=== PATIENT | female | born 1995 | race Hispanic/Latino ===

== ENCOUNTER 2025-06-27 11:58 | Emergency (ER) | payer SELFPAY ==
--- OUTSIDE RECORDS SUMMARY | 2025-06-27 12:13 | XMS REPORT | Continuity of Care Document ---
Author Name Unknown Address [address] [facility] [address] [place] [address] [facility] Address [address] [facility] [address] [place] [address] Care Team Providers Care Fire Truck Driver Name Role Phone HARSH CASTELLANO Primary Care Physician [phone] KORINA CASTELLANO Attending Clinician Unavailable LAW CABRERA Attending Clinician UnavailANTHONY Shanks Attending Clinician Unavailab CONRAD Amaro Attending Clinician Unavailable Jean Pierre Attending Clinician Unavailable JO Attending Clinician Unavailable Best Attending Clinician Unavailable JOHN ACEVEDO Attending Clinician Unavaila JEREMY Edwards Attending Clinician Unavailable WAYNE DELA CRUZ Attending Clinician Unavailable HARSHA FRIEDMAN Attending Clinician Unavailable MARLYN AVILA Attending Clinician Unavailable SUMAN MIRANDA Attending Clinician JANIE Perez Attending Clinician Unavailable LIZZ HUERTA Attending Clinician UnavailLAW Carias Admitting Clinician Unavailcorinne Greenfield Admitting Clinician Unavailable JO Admitting Clinician Unavailable Best Admitting Clinician Unavailable Payers Payer Name Policy Type Policy Number Effective Date Expirati on Date Source FORMERLY [facility] (MEDICAID REPLACEMENT - HMO) [id number] [place]) [id number] [place] [facility]) [id number] Problems Condition Name Condition Details Condition Category Status Onset Date Resolution Date Last Treatment Date Treating Clinician Comments Source Contracept ion status Contracept ion Status Problem Active 02-06 00:00: 00 [facility] High risk High Risk Problem Active 07-27 00:00: 00 [facility] Placenta previa marginalis Placenta Previa Marginalis Problem Active 07-05 00:00: 00 [facility] ultrasound scan abnormal Ultrasound Scan Abnormal Problem Active 06-19 00:00: 00 [facility] Normal labor and delivery Problem 06-19 00:00: 00 [facility] Draining postoperat monisha wound Problem [facility] 37 weeks gestation of Problem [facility] 39 weeks gestation of Problem [facility] 40 weeks gestation of Problem [facility] Allergic reaction, urticaria Problem [facility] Failure to progress in first stage of labor Problem [facility] Petechiae Problem [facility] Incomplete Problem [facility] Influenza Problem [facility] Non-reassu ring heart rate or rhythm affecting management of mother Problem [facility] Prolonged spontaneou s rupture of membranes Problem [facility] Retained products of conception Problem [facility]aginal delivery [facility] Upper respirator y tract infection Problem [facility] Urinary tract infection Problem [facility] Vaginal bleeding Problem [facility] Status post dilation and curettage Problem [facility] Status post primary low transverse section Problem [facility] Social History Social Habit Start Date Stop Date Quantity Comments Source History of tobacco use [facility] Smoking Status Start Date Stop Date Source Never Smoker [facility] Medications Ordered Medication Name Filled Medication Name Start Date Stop Date Current Medication? Ordering Clinician Indication Dosage Frequency Signature (SIG) Comments Components Source Ciprofloxac in (Cipro*) 250 Mg TAB Ciprofloxac in (Cipro*) 250 Mg TAB 2023-11 10:03: 19 08-13 10:02 :00 No 1 [facility] Ferrous Sulfate (Iron 325 Mg *) 325 Mg TAB Ferrous Sulfate (Iron 325 Mg *) 325 Mg TAB 2023-11 19:26: 00 Yes 1 [facility] Multivit-Mi n W/Fe-Fa * ( *) TAB Multivit-Mi n W/Fe-Fa * ( *) TAB 2017-11 14:58: 00 10-19 15:58 :00 No 1 [facility] Ferrous Gluconate (Ferrous Gluconate 240 Mg) 240 Mg TAB Ferrous Gluconate (Ferrous Gluconate 240 Mg) 240 Mg TAB 2017-11 01:44: 00 10-19 15:58 :00 No 240 [facility] Acetaminoph en W/ Codeine #3 * (Tylenol Codeine #3 300MG/30MG *) 1 Tab TAB Acetaminoph en W/ Codeine #3 * (Tylenol Codeine #3 300MG/30MG *) 1 Tab TAB 06-20 06:37: 00 10-06 02:43 :00 No 1 [facility] Ibuprofen (Motrin *) 800 Mg TAB Ibuprofen (Motrin *) 800 Mg TAB 08-07 13:31: 00 06-20 06:38 :00 No 1 [facility] doxycycline hyclate 100 mg tablet TAKE 1 TABLET BY MOUTH TWICE DAILY FOR 7 DAYS doxycycline hyclate 100 mg tablet TAKE 1 TABLET BY MOUTH TWICE DAILY FOR 7 DAYS No doxycyclin e hyclate 100 mg tablet TAKE 1 TABLET BY MOUTH TWICE DAILY FOR 7 DAYS [facility] Zafemy 150 mcg-35 mcg/24 hr transdermal patch APPLY 1 PATCH TOPICALLY TO THE SKIN EVERY WEEK Zafemy 150 mcg-35 mcg/24 hr transdermal patch APPLY 1 PATCH TOPICALLY TO THE SKIN EVERY WEEK No Zafemy 150 mcg-35 mcg/24 hr transderma l patch APPLY 1 PATCH TOPICALLY TO THE SKIN EVERY WEEK [facility] Macrobid 100 mg capsule Take 1 capsule twice a day by oral route for 5 days. Macrobid 100 mg capsule Take 1 capsule twice a day by oral route for 5 days. No 1capsul e(s) BID Macrobid 100 mg capsule Take 1 capsule twice a day by oral route for 5 days. [facility] Vital Signs Vital Name Observation Time Observation Value Comments S ource Height 2025-03-15 00:00:00 60 [in_i] [facility] BMI (Body Mass Index) 2025-03-15 00:00:00 26.4 kg/m2 [facility] Body Weight 2025-03-15 00:00:00 135.4 [lb_av] [facility] BMI (Body Mass Index) 2025-02-12 00:00:00 26.5 kg/m2 [facility] Body Weight 2025-02-12 00:00:00 135.9 [lb_av] M [facility] Height 2025-02-12 00:00:00 60 [in_i] [facility] BP Systolic 2025-02-12 00:00:00 129 mm[Hg] [facility] BP Diastolic 2025-02-12 00:00:00 82 mm[Hg] [facility] BP Systolic 2024-12-28 00:00:00 109 mm[Hg] [facility] Body Weight 2024-12-28 00:00:00 136.8 [lb_av] [facility] BMI (Body Mass Index) 2024-12-28 00:00:00 26.7 kg/m2 [facility] BP Diastolic 2024-12-28 00:00:00 78 mm[Hg] [facility] Height 2024-12-28 00:00:00 60 [in_i] [facility] BP Diastolic 2024-11-21 00:00:00 63 mm[Hg] [facility] Body Weight 2024-11-21 00:00:00 2213 [oz_av] [facility] BP Systolic 2024-11-21 00:00:00 98 mm[Hg] [facility] Height 2024-11-21 00:00:00 60 [in_i] [facility] BMI (Body Mass Index) 2024-11-21 00:00:00 27 kg/m2 [facility] BP Diastolic 2024-10-20 00:00:00 78 mm[Hg] [facility] Height 2024-10-20 00:00:00 60 [in_i] [facility] Body Weight 2024-10-20 00:00:00 134 [lb_av] [facility] BP Systolic 2024-10-20 00:00:00 113 mm[Hg] [facility] BMI (Body Mass Index) 2024-10-20 00:00:00 26.2 kg/m2 [facility] Height 2024-09-08 00:00:00 60 [in_i] [facility] BMI (Body Mass Index) 2024-09-08 00:00:00 25.4 kg/m2 [facility] Body Weight 2024-09-08 00:00:00 130 [lb_av] [facility] BP Systolic 2024-09-08 00:00:00 109 mm[Hg] [facility] BP Diastolic 2024-09-08 00:00:00 76 mm[Hg] [facility] BMI (Body Mass Index) 2024-08-28 00:00:00 25.5 kg/m2 [facility] Body Weight 2024-08-28 00:00:00 130.4 [lb_av] [facility] BP Systolic 2024-08-28 00:00:00 107 mm[Hg] [facility] Height 2024-08-28 00:00:00 60 [in_i] [facility] BP Diastolic 2024-08-28 00:00:00 70 mm[Hg] [facility] BP Diastolic 2024-08-24 00:00:00 67 mm[Hg] [facility] Body Weight 2024-08-24 00:00:00 132 [lb_av] [facility] BMI (Body Mass Index) 2024-08-24 00:00:00 25.8 kg/m2 [facility] Height 2024-08-24 00:00:00 60 [in_i] [facility] BP Systolic 2024-08-24 00:00:00 98 mm[Hg] [facility] BMI (Body Mass Index) 2024-08-21 00:00:00 27.2 kg/m2 [facility] BP Diastolic 2024-08-21 00:00:00 74 mm[Hg] [facility] BP Systolic 2024-08-21 00:00:00 133 mm[Hg] [facility] Height 2024-08-21 00:00:00 60 [in_i] [facility] Body Weight 2024-08-21 00:00:00 139.1 [lb_av] [facility] Height 2024-08-20 12:54:00 149.759366 cm [facility] Weight 2024-08-20 12:54:00 58.286301 kg [facility] BMI (Body Mass Index) 2024-08-20 12:54:00 26.3 kg/m2 [facility] Height 2024-08-11 19:23:00 152.4 cm [facility] Weight 2024-08-11 19:23:00 66.566669 kg [facility] BMI (Body Mass Index) 2024-08-11 19:23:00 28.7 kg/m2 [facility] BP Diastolic 2024-08-09 00:00:00 70 mm[Hg] [facility] Height 2024-08-09 00:00:00 60 [in_i] [facility] Body Weight 2024-08-09 00:00:00 147 [lb_av] [facility] BMI (Body Mass Index) 2024-08-09 00:00:00 28.7 kg/m2 [facility] BP Systolic 2024-08-09 00:00:00 107 mm[Hg] [facility] BP Systolic 2024-08-04 00:00:00 107 mm[Hg] [facility] BMI (Body Mass Index) 2024-08-04 00:00:00 29 kg/m2 [facility] Body Weight 2024-08-04 00:00:00 148.6 [lb_av] [facility] BP Diastolic 2024-08-04 00:00:00 70 mm[Hg] [facility] Height 2024-08-04 00:00:00 60 [in_i] [facility] BMI (Body Mass Index) 2024-07-28 00:00:00 28.6 kg/m2 [facility] BP Systolic 2024-07-28 00:00:00 103 mm[Hg] [facility] Height 2024-07-28 00:00:00 60 [in_i] [facility] BP Diastolic 2024-07-28 00:00:00 64 mm[Hg] [facility] Body Weight 2024-07-28 00:00:00 146.6 [lb_av] [facility] BP Systolic 2024-07-21 00:00:00 115 mm[Hg] [facility] BP Diastolic 2024-07-21 00:00:00 72 mm[Hg] [facility] Height 2024-07-21 00:00:00 60 [in_i] [facility] Body Weight 2024-07-21 00:00:00 145 [lb_av] [facility] BMI (Body Mass Index) 2024-07-21 00:00:00 28.3 kg/m2 [facility] BP Systolic 2024-07-14 00:00:00 107 mm[Hg] [facility] Body Weight 2024-07-14 00:00:00 143 [lb_av] [facility] BP Diastolic 2024-07-14 00:00:00 68 mm[Hg] [facility] Height 2024-07-14 00:00:00 60 [in_i] [facility] BMI (Body Mass Index) 2024-07-14 00:00:00 27.9 kg/m2 [facility] BP Diastolic 2024-06-30 00:00:00 65 mm[Hg] [facility] BP Systolic 2024-06-30 00:00:00 99 mm[Hg] [facility] BMI (Body Mass Index) 2024-06-30 00:00:00 27.9 kg/m2 [facility] Height 2024-06-30 00:00:00 60 [in_i] [facility] Body Weight 2024-06-30 00:00:00 143 [lb_av] [facility] Height 2024-05-25 00:00:00 60 [in_i] [facility] BP Diastolic 2024-05-25 00:00:00 65 mm[Hg] [facility] Body Weight 2024-05-25 00:00:00 140.7 [lb_av] [facility] BMI (Body Mass Index) 2024-05-25 00:00:00 27.5 kg/m2 [facility] BP Systolic 2024-05-25 00:00:00 96 mm[Hg] [facility] Height 2024-03-21 00:00:00 58 [in_i] [facility] BP Diastolic 2024-03-21 00:00:00 71 mm[Hg] [facility] Body Weight 2024-03-21 00:00:00 138.4 [lb_av] [facility] BMI (Body Mass Index) 2024-03-21 00:00:00 28.9 kg/m2 [facility] BP Systolic 2024-03-21 00:00:00 106 mm[Hg] [facility] Height 2023-07-09 00:00:00 60 [in_i] [facility] Body Weight 2023-07-09 00:00:00 2192 [oz_av] [facility] BP Diastolic 2023-07-09 00:00:00 78 mm[Hg] [facility] BMI (Body Mass Index) 2023-07-09 00:00:00 26.8 kg/m2 [facility] BP Systolic 2023-07-09 00:00:00 111 mm[Hg] [facility] BMI (Body Mass Index) 2023-06-24 00:00:00 26.8 kg/m2 [facility] Height 2023-06-24 00:00:00 60 [in_i] [facility] BP Systolic 2023-06-24 00:00:00 98 mm[Hg] [facility] Body Weight 2023-06-24 00:00:00 2192 [oz_av] [facility] BP Diastolic 2023-06-24 00:00:00 67 mm[Hg] [facility] Procedures Procedure Date / Time Performed Performing Clinician Source US, obstetric, limited 2024-07-14 00:00:00 [facility] ULTRASOUND, UTERUS REAL TIME WITH IMAGE DOC, AND MATERNAL EVAL PLUS DETAILED ANATOMIC EXAMINATION, TRANSABDOMINAL APPROACH; SINGLE OR FIRST GESTATION 2024-05-25 00:00:00 [facility] XR, thoracic spine 2022-02-18 00:00:00 [facility] XR, lumbar spine 2022-02-18 00:00:00 [facility] Dilation and Curettage 2021-05-26 00:00:00 [facility] non-stress test 2021-05-08 [facility] 2021-04-14 00:00:00 [facility] US, obstetric, limited 2021-03-17 00:00:00 [facility] ULTRASOUND REPEAT 2021-02-17 00:00:00 [facility] ULTRASOUND, UTERUS REAL TIME WITH IMAGE DOC, AND MATERNAL EVAL PLUS DETAILED ANATOMIC EXAMINATION, TRANSABDOMINAL APPROACH; SINGLE OR FIRST GESTATION 2020-11-25 00:00:00 [facility] US, obstetric, limited 2020-11-25 00:00:00 [facility] US, obstetric, limited 2020-11-04 00:00:00 [facility] US, obstetric, limited 2020-10-11 00:00:00 [facility] ULTRASOUND, UTERUS REAL TIME WITH IMAGE DOCUMENTAITON, TRANSVAGINAL 2020-09-27 00:00:00 [facility] US, transvaginal 2020-04-15 00:00:00 [facility] US, obstetric, limited 2018-10-10 00:00:00 [facility] Dilation and Curettage 2014-08-07 00:00:00 [facility] Encounters Start Date/Time End Date/Time Encounter Type Admission Type Attending Clinicians Care Facility Care Department Encounter ID Source 2025-03-15 00:00:00 2025-03-15 00:00:00 Law Cabrera MD: [address] [facility], [address], [place] [address] , Ph. [phone] [facility] [id number] [facility] 2025-02-12 00:00:00 2025-02-12 00:00:00 Law Cbarera MD: [address] [facility], [address], [place] [address] , Ph. [phone] [facility] [id number] 0407 [facility] 2024-12-28 00:00:00 2024-12-28 00:00:00 Law Cabrera MD: [address] [facility], [address], [place] [address] , Ph. [phone] [facility] [id number] 0220 [facility] 2024-11-21 09:25:00 2024-11-21 09:25:00 [facility]patient [facility] [id number] [facility] 2024-11-21 00:00:00 2024-11-21 00:00:00 Korina Castellano PA-C: [address], [address], [place] [address] , Ph. [facility] [id number] 0114 [facility] 2024-10-20 00:00:00 2024-10-20 00:00:00 Law Cabrera MD: [address], [address], [place] [address] , Ph. [phone] [facility] - OBGYN [id number] 1213 [facility] 2024-09-08 00:00:00 2024-09-08 00:00:00 Law Cabrera MD: [address], [address], [place] [id number] , Ph. [phone] [facility] - OBGYN [id number] 1101 [facility] 2024-08-28 00:00:00 2024-08-28 00:00:00 Law Cabrera MD: [address], [address], [place] [address] , Ph. [phone] [facility] [id number] 1021 [facility] 2024-08-25 09:00:00 2024-08-26 13:00:00 Outpatient EL [facility] [id number] [facility] 2024-08-24 14:44:00 2024-08-24 14:44:00 Emergency ER LAW [facility] [id number] [facility] 2024-08-24 00:00:00 2024-08-24 00:00:00 Law Cabrera MD: [address], [address], [place] [address] , Ph. [phone] [facility] [id number] 1017 [facility] 2024-08-21 00:00:00 2024-08-21 00:00:00 Law Cabrera MD: [address], [address], [place] [address] , Ph. [phone] [facility] OBGY [id number] 1014 [facility] 2024-08-20 12:43:00 2024-08-20 14:10:00 Departed Emergency Room [facility] [id number] 33 [facility] 2024-08-20 12:43:00 2024-08-20 14:10:00 Emergency ER ANTHONY [facility] [id number] [facility] 2024-08-11 10:45:00 2024-08-13 10:30:00 Inpatient ER LAW [facility] [id number] [facility] 2024-08-11 10:45:00 2024-08-13 10:30:00 Discharged Inpatient [facility] [id number] 76 [facility] 2024-08-09 09:40:00 2024-08-09 09:40:00 Registered Clinic [facility] [id number] 33 [facility] 2024-08-09 09:40:00 2024-08-09 09:40:00 Outpatient CONRAD [facility] [id number] [facility] 2024-08-09 00:00:00 2024-08-09 00:00:00 SALLY Cline: [address], [address], [place] [address] , Ph. [phone] [facility] - OBGYN [id number] 1002 [facility] 2024-08-04 00:00:00 2024-08-04 00:00:00 Law Cabrera MD: [address], [address], [place] [address] , Ph. [phone] [facility] 0927 [facility] 2024-07-28 00:00:00 2024-07-28 00:00:00 Law Cabrera MD: [address], [address], [place] [address] , Ph. [phone] [facility] - [facility]YN 0920 [facility] 2024-07-21 00:00:00 2024-07-21 00:00:00 Law Cabrera MD: [address], [address], [place] [address] , Ph. [phone] [facility] - [facility]YN 0913 [facility] 2024-07-14 00:00:00 2024-07-14 00:00:00 Law Cabrera MD: [address], [address], [place] [address] , Ph. [phone] [facility] - [facility]YN 0906 [facility] 2024-06-30 00:00:00 2024-06-30 00:00:00 Law Cabrera MD: [address], [address], [place] [address] , Ph. [phone] [facility]BGYN [id number] 0823 [facility] 2024-05-25 11:38:00 2024-05-25 11:38:00 Outpatient CONRAD [facility] [id number] [facility] 2024-05-25 00:00:00 2024-05-25 00:00:00 RUDDY ClineBC: [address], [address], [place] [address] , Ph. [phone] [facility] OBN [id number] 0718 [facility] 2024-03-21 00:00:00 2024-03-21 00:00:00 Yisel Jean, MANAGER CARDIAC CATH: [address], [place] [address] , [facility]. 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 [facility] [id number] [facility] 2023-06-24 08:55:00 2023-06-24 08:55:00 Outpatient KORINA [facility] [id number] [facility] 2023-06-24 00:00:00 2023-06-24 00:00:00 Korina Castellano PA-C: [address], [address], [place] [address] , Ph. [facility] [id number] [facility] 2022-02-18 14:23:00 2022-02-18 14:23:00 Outpatient KORINA [facility] [id number] [facility] 2021-12-02 11:39:00 2021-12-02 11:39:00 Outpatient KORINA [facility] [id number] [facility] 2021-10-20 11:40:00 2021-10-20 11:40:00 Outpatient KORINA [facility] [id number] [facility] 2021-10-07 11:42:00 2021-10-07 11:42:00 Outpatient CONRAD [facility] [id number] [facility] 2021-06-25 11:02:00 2021-06-25 11:02:00 [facility]patient [facility] [id number] [facility] 2021-05-26 06:17:00 2021-05-26 06:17:00 Outpatient [facility] [id number] [facility] 2021-05-25 07:38:00 2021-05-25 12:17:00 Emergency ER ALEX [facility] [id number] [facility] 2021-05-08 10:32:00 2021-05-09 16:00:00 Inpatient LAW [facility] ISLANDEleanor [facility] [id number] [facility] 2021-05-01 15:23:00 2021-05-01 15:23:00 Outpatient LAW [facility] [id number] [facility] 2021-03-31 13:25:00 2021-03-31 13:25:00 Outpatient LAW [facility] [id number] [facility] 2021-02-17 08:53:00 2021-02-17 08:53:00 Outpatient LAW [facility] [id number] [facility] 2020-12-26 10:00:00 2020-12-26 10:00:00 Outpatient Law [facility] [id number] [facility] 2020-09-27 16:44:00 2020-09-27 16:44:00 Outpatient LAW [facility] [id number] [facility] 2020-04-15 10:57:00 2020-04-15 10:57:00 Outpatient JOHN [facility] [id number] [facility] 2020-04-13 17:30:00 2020-04-13 17:30:00 Outpatient [facility] [id number] [facility] 2018-12-06 16:27:00 2018-12-06 16:27:00 Outpatient LAW [facility] [id number] [facility] 2018-11-10 15:09:00 2018-11-10 15:09:00 Outpatient LAW [facility] [id number] [facility] 2018-10-31 00:56:00 2018-10-31 04:04:00 Emergency ER WAYNE [facility] [id number] [facility] 2018-10-19 14:21:00 2018-10-20 17:00:00 Inpatient LAW RENDON [facility] [id number] [facility] 2018-10-06 02:32:00 2018-10-06 03:46:00 Emergency ER [facility] [id number] [facility] 2018-09-26 14:00:00 2018-09-26 14:00:00 Outpatient MARLYN [facility] [id number] [facility] 2018-08-12 10:22:00 2018-08-12 10:22:00 Outpatient MARLYN [facility] [id number] [facility] 2018-06-01 14:23:00 2018-06-01 14:23:00 Outpatient EL DICLERYAN [facility] [id number] [facility] 2018-04-27 20:01:00 2018-04-27 21:11:00 Emergency ER WAYNE DEAL [facility] [id number] [facility] 2018-04-26 12:53:00 2018-04-26 12:53:00 Outpatient EL DICLERYAN, [facility] [id number] [facility] 2018-04-12 14:57:00 2018-04-12 14:57:00 Outpatient EL DICLERYAN, [facility] [id number] [facility] 2018-03-08 08:36:00 2018-03-08 08:36:00 Outpatient EL DICLERYAN, [facility] [id number] [facility] 2017-08-18 09:24:00 2017-08-18 09:24:00 Outpatient EL DICLERYAN, [facility] [id number] [facility] 2015-06-18 23:50:00 2015-06-20 09:40:00 Inpatient ER MYALAW Reyes [facility] [id number] [facility] 2015-05-14 15:21:00 2015-05-14 15:21:00 Outpatient EL MYALAW [facility] [id number] [facility] 2015-04-02 14:45:00 2015-04-02 14:45:00 Outpatient EL MYALAW [facility] [id number] [facility] 2014-11-26 15:43:00 2014-11-26 15:43:00 Outpatient LAW RENDON [facility] [id number] [facility] 2014-09-17 13:22:00 2014-09-17 13:22:00 Outpatient EL LAW [facility] [id number] [facility] 2014-08-07 10:23:00 2014-08-07 16:00:00 Inpatient ER LAW CABRERA [facility] [id number] [facility] 2013-10-12 14:32:00 2013-10-12 15:18:00 Emergency ER JANIE [facility] [id number] [facility] 2011-09-12 11:48:00 2011-09-12 16:05:00 Emergency ER LIZZ [facility] [id number] [facility] Results Test Description Test Time Test Comments Results Result Co mments Source [facility], ijncltse2605-59-29 08:45:37* Test Item Value Reference Range Interpretation Comme nts Leukocytes (test code = Leukocytes) Negative Nitrite (test code = Nitrite) negative Urobilinogen (test code = Urobilinogen) .2 Protein (test code = Protein) Negative pH (test code = pH) 6.0 Blood (test code = Blood) Negative Specific Clayton (test code = Specific Clayton) 1.020 Ketone (test code = Ketone) Negative Bilirubin (test code = Bilirubin) Negative Glucose (test code = Glucose) Negative Appearance (test code = Appearance) Clear Color (test code = Color) Yellow [facility] [Identifier] in Vaginal fluid by Wet [id number] 10:20:25* Test Item Value Reference Range Interpretation Comme nts Clue Cells (test code = Clue Cells) negative WBCs (test code = WBCs) positive Trichomonads (test code = Trichomonads) negative Epithelial cells (test code = Epithelial cells) normal RBCs (test code = RBCs) negative [facility], pfgbf4847-96-85 09:39:36* Test Item Value Reference Range Interpretation Comme nts Test (test code = Test) negative [facility] Groupurinalysis, vfnjvdmn4048-48-99 09:39:20* Test Item Value Reference Range Interpretation Comme nts Leukocytes (test code = Leukocytes) Negative Nitrite (test code = Nitrite) negative Urobilinogen (test code = Urobilinogen) .2 Protein (test code = Protein) Negative pH (test code = pH) 5.5 Blood (test code = Blood) Hemolyzed: Trace Specific Clayton (test code = Specific Clayton) 1.025 Ketone (test code = Ketone) Negative Bilirubin (test code = Bilirubin) Negative Glucose (test code = Glucose) Negative Appearance (test code = Appearance) Clear Color (test code = Color) Yellow [facility], [id number] 08:57:41* Test Item Value Reference Range Interpretation Comme nts Leukocytes (test code = Leukocytes) Trace Nitrite (test code = Nitrite) negative Urobilinogen (test code = Urobilinogen) .2 Protein (test code = Protein) Negative pH (test code = pH) 6.0 Blood (test code = Blood) Non-Hemolyzed: Trace Specific Clayton (test code = Specific Clayton) 1.025 Ketone (test code = Ketone) Negative Bilirubin (test code = Bilirubin) Negative Glucose (test code = Glucose) Negative Appearance (test code = Appearance) Clear Color (test code = Color) Yellow [facility], [id number] 11:42:36* Test Item Value Reference Range Interpretation Comme nts Leukocytes (test code = Leukocytes) Small Nitrite (test code = Nitrite) negative Urobilinogen (test code = Urobilinogen) .2 Protein (test code = Protein) Negative pH (test code = pH) 7.0 Blood (test code = Blood) Non-Hemolyzed: Trace Specific Clayton (test code = Specific Clayton) 1.020 Ketone (test code = Ketone) Negative Bilirubin (test code = Bilirubin) Negative Glucose (test code = Glucose) Negative Appearance (test code = Appearance) Clear Color (test code = Color) Yellow [facility] [id number] 17:00:00* Test Item Value Reference Range Interpretation Comme nts lactic acid (test code = lac tic acid) 0.74 mmol/L 0.5-2.2 [facility] 2000 [facility] - Serum or Plasma 2024-08-24 16:53:00* Test Item Value Reference Range Interpretation Comme nts glucose (test code = glucose) 78 mg/dL 74-106 blood urea nitrogen (test co de = blood urea nitrogen) 13 mg/dL 6-20 osmolality calculated,serum (test code = osmolality calculated,serum) 271 mOsm/kg 280-300 L creatinine (test code = creatinine) 0.59 mg/dL 0.50-0.90 glomerular filtration rate ( test code = glomerular filtration rate) > 60.00 BUN/creatinine ratio (test c ode = BUN/creatinine ratio) 22.0 12.0-20.0 H sodium level (test code = so dium level) 136 mmol/L 135-145 potassium level (test code = potassium level) 4.8 mmol/L 3.5-5.2 chloride level (test code = chloride level) 97 mmol/L 98-108 L CO2 (test code = CO2) 20 mmol/L 21-32 L anion gap (test code = anion gap) 23.8 mEq/L 12.0-20.0 H calcium level (test code = calcium level) 9.6 mg/dL 8.6-10.0 total protein (test code = t otal protein) 7.7 g/dL 6.6-8.7 albumin (test code = albumin) 4.1 g/dL 3.5-5.2 globulin (test code = globulin) 3.6 g/dL 1.5-4.5 A/G ratio (test code = A/G ratio) 1.1 >1.0 bilirubin,total (test code = bilirubin,total) 0.5 mg/dL 0.0-1.2 AST/SGOT (test code = AST/SGOT) 23 U/L 15-32 ALT/SGPT (test code = ALT/SGPT) 24 U/L 0-33 alkaline phosphatase, total (test code = alkaline phosphatase, total) 133 U/L 35-105 H [facility] W Auto Differential panel - [id number] 16:35:00 * Test Item Value Reference Range Interpretation Comme nts white blood count (test code = white blood count) 10.3 K/uL 4.0-11.5 red blood count (test code = red blood count) 4.38 M/uL 3.80-5.20 hemoglobin (test code = hemoglobin) 13.2 g/dL 10.5-15.7 hematocrit (test code = hematocrit) 40.9 % 34.0-50.0 mean corpuscular volume (jodee t code = mean corpuscular volume) 93.4 fL 86.0-100.0 mean corpuscular hemoglobin (test code = mean corpuscular hemoglobin) 30.1 pg 26.2-33.4 mean corpuscular HGB conc (t est code = mean corpuscular HGB conc) 32.3 g/dL 30.0-34.0 red cell distribution width (test code = red cell distribution width) 13.2 % 12.0-15.5 platelet count (test code = platelet count) 408 K/uL 165-450 mean platelet volume (test c ode = mean platelet volume) 9.5 fL 9.4-12.6 neutrophils % (test code = neutrophils %) 74.3 % 44.4-80.1 Ig% (test code = Ig%) 1.5 % 0.0-0.4 H lymphocyte% (test code = lymphocyte%) 17.9 % 10.0-50.0 mono % (test code = mono %) 4.8 % 3.6-12.0 eos % (test code = eos %) 0.9 % 0.0-5.4 basophil % (test code = baso cesilia %) 0.6 % 0.1-1.2 absolute neutrophil count (t est code = absolute neutrophil count) 7.64 K/uL 1.56-6.13 H Ig# (test code = Ig#) 0.15 K/uL 0.00-0.03 H lymph # (test code = lymph #) 1.84 K/uL 1.18-3.74 mono # (test code = mono #) 0.49 K/uL 0.24-0.86 eos # (test code = eos #) 0.09 K/uL 0.04-0.36 basophil # (test code = baso cesilia #) 0.06 K/uL 0.01-0.08 NRBC% (test code = NRBC%) 0 /100 WBC 0-0.2 NRBC# (test code = NRBC#) 0 K/uL [facility] 2000 [facility] - Serum or Plasma 2024-08-20 13:38:00* Test Item Value Reference Range Interpretation Comme nts glucose (test code = glucose) 98 mg/dL 74-106 blood urea nitrogen (test co de = blood urea nitrogen) 15 mg/dL 6-20 osmolality calculated,serum (test code = osmolality calculated,serum) 278 mOsm/kg 280-300 L creatinine (test code = creatinine) 0.54 mg/dL 0.50-0.90 glomerular filtration rate ( test code = glomerular filtration rate) > 60.00 BUN/creatinine ratio (test c ode = BUN/creatinine ratio) 27.8 12.0-20.0 H sodium level (test code = so dium level) 139 mmol/L 135-145 potassium level (test code = potassium level) 4.0 mmol/L 3.5-5.2 chloride level (test code = chloride level) 103 mmol/L 98-108 CO2 (test code = CO2) 22 mmol/L 21-32 anion gap (test code = anion gap) 18.0 mEq/L 12.0-20.0 calcium level (test code = calcium level) 9.2 mg/dL 8.6-10.0 total protein (test code = t otal protein) 6.6 g/dL 6.6-8.7 albumin (test code = albumin) 3.0 g/dL 3.5-5.2 L globulin (test code = globulin) 3.6 g/dL 1.5-4.5 A/G ratio (test code = A/G ratio) 0.8 >1.0 bilirubin,total (test code = bilirubin,total) 0.5 mg/dL 0.0-1.2 AST/SGOT (test code = AST/SGOT) 16 U/L 15-32 ALT/SGPT (test code = ALT/SGPT) 18 U/L 0-33 alkaline phosphatase, total (test code = alkaline phosphatase, total) 118 U/L 35-105 H [facility]allipase2024-[facility] 13:38:00* Test Item Value Reference Range Interpretation Comme nts lipase (test code = lipase) 11 U/L 13-60 L [facility] [id number] 13:38:00* Test Item Value Reference Range Interpretation Comme nts Total Bilirubin (test code = YMA8693) 0.5 [facility] CtrSerum or plasma urea nitrogen measurement (mass/volume)2024-08-20 13:38:00* Test Item Value Reference Range Interpretation Comme [facility] Blood Urea Nitrogen (test co de = 3094-0) 15 [facility] [id number] 13:38:00* Test Item Value Reference Range Interpretation Comme nts Aspartate Amino Transf (AST/ SGOT) (test code = TCP7247) 16 [facility] CtrCreatinine [id number] 13:38:00* Test Item Value Reference Range Interpretation Comme nts Creatinine (test code = 014478133) 0.54 [facility] CtrEstimated glomerular filtration rate (GFR) yuspdsmuusuoy5402-65-03 13:38:00* Test Item Value Reference Range Interpretation Comme [facility] Glomerular Filtration Rate C alc (test code = 537206959) > 60.00 [facility] CtrBUN/creatinine kneiy6875-25-51 13:38:00* Test Item Value Reference Range Interpretation Comme [facility] BUN/Creatinine Ratio (test c ode = 38066098) 27.8 [facility] CtrBody fluid potassium jcyrppjmfjg8878-17-74 13:38:00* Test Item Value Reference Range Interpretation Comme nts Potassium Level (test code = 2821-7) 4.0 [facility] [id number] 13:38:00* Test Item Value Reference Range Interpretation Comme nts Carbon Dioxide Level (test c ode = 90596838) 22 [facility] CtrAnion gap vjwcewgyfxa4202-60-94 13:38:00* Test Item Value Reference Range Interpretation Comme [facility] Anion Gap (test code = 02509164) 18.0 [facility] CtrCalcium tignx1633-60-34 13:38:00* Test Item Value Reference Range Interpretation Comme nts Calcium Level (test code = 14073008) 9.2 [facility] CtrGlobulin [id number] 13:38:00* Test Item Value Reference Range Interpretation Comme nts Globulin (test code = 306815695) 3.6 [facility] CtrALT (SGPT) ser/zfws8489-79-16 13:38:00* Test Item Value Reference Range Interpretation Comme nts Alanine Aminotransferase (AL T/SGPT) (test code = 1742-6) 18 [facility] DbzKhlqlq5247-71-48 13:38:00* Test Item Value Reference Range Interpretation Comme nts Lipase (test code = 34691316) 11 [facility] CtrALP ser/wfix9303-89-65 13:38:00* Test Item Value Reference Range Interpretation Comme nts Total Alkaline Phosphatase ( test code = 6768-6) 118 [facility] Differential panel - Uakbt2289-13-92 13:23:00* Test Item Value Reference Range Interpretation Comme nts white blood count (test code = white blood count) 11.3 K/uL 4.0-11.5 red blood count (test code = red blood count) 3.59 M/uL 3.80-5.20 L hemoglobin (test code = hemoglobin) 10.8 g/dL 10.5-15.7 hematocrit (test code = hematocrit) 33.5 % 34.0-50.0 L mean corpuscular volume (jodee t code = mean corpuscular volume) 93.3 fL 86.0-100.0 mean corpuscular hemoglobin (test code = mean corpuscular hemoglobin) 30.1 pg 26.2-33.4 mean corpuscular HGB conc (t est code = mean corpuscular HGB conc) 32.2 g/dL 30.0-34.0 red cell distribution width (test code = red cell distribution width) 13.2 % 12.0-15.5 platelet count (test code = platelet count) 304 K/uL 165-450 mean platelet volume (test c ode = mean platelet volume) 8.8 fL 9.4-12.6 L neutrophils % (test code = neutrophils %) 76.5 % 44.4-80.1 Ig% (test code = Ig%) 1.8 % 0.0-0.4 H lymphocyte% (test code = lymphocyte%) 14.9 % 10.0-50.0 mono % (test code = mono %) 5.4 % 3.6-12.0 eos % (test code = eos %) 1.1 % 0.0-5.4 basophil % (test code = baso cesilia %) 0.3 % 0.1-1.2 absolute neutrophil count (t est code = absolute neutrophil count) 8.65 K/uL 1.56-6.13 H Ig# (test code = Ig#) 0.20 K/uL 0.00-0.03 H lymph # (test code = lymph #) 1.68 K/uL 1.18-3.74 mono # (test code = mono #) 0.61 K/uL 0.24-0.86 eos # (test code = eos #) 0.12 K/uL 0.04-0.36 basophil # (test code = baso cesilia #) 0.03 K/uL 0.01-0.08 NRBC% (test code = NRBC%) 0 /100 WBC 0-0.2 NRBC# (test code = NRBC#) 0 K/uL [facility] GroupAbsolute eosinophil [id number] 13:23:00* Test Item Value Reference Range Interpretation Comme [facility] Eosinophils # (Auto) (test c ode = BSV3263) 0.12 [facility] CtrRBC ystbi1959-70-71 13:23:00* Test Item Value Reference Range Interpretation Comme [facility] Red Blood Count (test code = 70332925) 3.59 [facility] MfyHtawumztvw7544-98-83 13:23:00* Test Item Value Reference Range Interpretation Comme [facility] Hematocrit (test code = 45056374) 33.5 [facility] CtrMCV (mean corpuscular volume) determination 2024-08-20 13:23:00* Test Item Value Reference Range Interpretation Comme [facility] Mean Corpuscular Volume (jodee t code = 73988-4) 93.3 [facility] CtrMean corpuscular hemoglobin (MCH) determination 2024-08-20 13:23:00* Test Item Value Reference Range Interpretation Comme [facility] Mean Corpuscular Hemoglobin (test code = 91361039) 30.1 [facility] CtrMean corpuscular hemoglobin concentration (MCHC) mjzhuixlkpmer2547-97-70 13:23:00* Test Item Value Reference Range Interpretation Comme [facility] Mean Corpuscular Hemoglobin Concent (test code = 47721036) 32.2 [facility] CtrRBC distribution width coefficient of variation 2024-08-20 13:23:00* Test Item Value Reference Range Interpretation Comme [facility] Red Cell Distribution Width (test code = 12934040) 13.2 [facility] CtrPlatelet aulvl3399-99-87 13:23:00* Test Item Value Reference Range Interpretation Comme [facility] Platelet Count (test code = 87822776) 304 [facility] CtrMean platelet itpehe4910-07-86 13:23:00* Test Item Value Reference Range Interpretation Comme [facility] Mean Platelet Volume (test c ode = 95888121) 8.8 [facility] CtrNeutrophils seg % jdu8620-55-27 13:23:00* Test Item Value Reference Range Interpretation Comme [facility] Neutrophils (%) (Auto) (test code = 20794-8) 76.5 [facility] CtrAbsolute immature granulocyte jsjwe2256-62-40 13:23:00* Test Item Value Reference Range Interpretation Comme [facility] Absolute Immature Granulocyt e (auto (test code = 54792-4) 0.20 [facility] CtrBlood band neutrophils count (number/volume) 2024-08-20 13:23:00* Test Item Value Reference Range Interpretation Comme [facility] Neutrophils # (Auto) (test c ode = 30988-2) 8.65 [facility] CtrAbsolute lymphocyte cbrpl6111-11-04 13:23:00* Test Item Value Reference Range Interpretation Comme [facility] Lymphocytes # (Auto) (test c ode = 05045-6) 1.68 [facility] CtrAbsolute basophil apxvt2960-75-54 13:23:00* Test Item Value Reference Range Interpretation Comme [facility] Basophils # (Auto) (test cod e = 10756465) 0.03 [facility] CtrAbsolute NRBC iyvsf4448-95-51 13:23:00* Test Item Value Reference Range Interpretation Comme nts Nucleated Red Blood Cells # (test code = 855545917) 0 [facility] CtrCBC W Auto Differential panel - [id number] 06:22:00* Test Item Value Reference Range Interpretation Comme nts white blood count (test code = white blood count) 16.0 K/uL 4.0-11.5 H red blood count (test code = red blood count) 3.37 M/uL 3.80-5.20 L hemoglobin (test code = hemoglobin) 10.3 g/dL 10.5-15.7 L hematocrit (test code = hematocrit) 31.9 % 34.0-50.0 L mean corpuscular volume (jodee t code = mean corpuscular volume) 94.7 fL 86.0-100.0 mean corpuscular hemoglobin (test code = mean corpuscular hemoglobin) 30.6 pg 26.2-33.4 mean corpuscular HGB conc (t est code = mean corpuscular HGB conc) 32.3 g/dL 30.0-34.0 red cell distribution width (test code = red cell distribution width) 13.8 % 12.0-15.5 platelet count (test code = platelet count) 159 K/uL 165-450 L ipf# (test code = ipf#) 8.3 ipf% (test code = ipf%) 5.2 % 0-8 mean platelet volume (test c ode = mean platelet volume) 10.0 fL 9.4-12.6 neutrophils % (test code = neutrophils %) 84.8 % 44.4-80.1 H Ig% (test code = Ig%) 0.4 % 0.0-0.4 lymphocyte% (test code = lymphocyte%) 6.6 % 10.0-50.0 L mono % (test code = mono %) 7.2 % 3.6-12.0 eos % (test code = eos %) 0.8 % 0.0-5.4 basophil % (test code = baso cesilia %) 0.2 % 0.1-1.2 absolute neutrophil count (t est code = absolute neutrophil count) 13.58 K/uL 1.56-6.13 H Ig# (test code = Ig#) 0.07 K/uL 0.00-0.03 H lymph # (test code = lymph #) 1.05 K/uL 1.18-3.74 L mono # (test code = mono #) 1.15 K/uL 0.24-0.86 H eos # (test code = eos #) 0.13 K/uL 0.04-0.36 basophil # (test code = baso cesilia #) 0.03 K/uL 0.01-0.08 NRBC% (test code = NRBC%) 0 /100 WBC 0-0.2 NRBC# (test code = NRBC#) 0 K/uL [facility] GroupWhite blood cell odrnl3888-55-11 06:22:00* Test Item Value Reference Range Interpretation Comme [facility] White Blood Count (test code = KGN5033) 16.0 [facility] CtrMean corpuscular hemoglobin concentration (MCHC) eikocgxuxbmjq5121-16-79 06:21:00* Test Item Value Reference Range Interpretation Comme [facility] Mean Corpuscular Hemoglobin Concent (test code = 80376812) 32.3 [facility] CtrRBC distribution width coefficient of variation 2024-08-13 06:21:00* Test Item Value Reference Range Interpretation Comme [facility] Red Cell Distribution Width (test code = 40318729) 13.8 [facility] CtrPlatelet cadfu8792-54-93 06:21:00* Test Item Value Reference Range Interpretation Comme nts Platelet Count (test code = 96100487) 159 [facility] CtrImmature platelet bceofvungr4720-94-08 06:21:00* Test Item Value Reference Range Interpretation Comme [facility] Immature Platelet Fraction ( test code = 47705-3) 5.2 [facility] CtrMean platelet awkiyz6596-93-38 06:21:00* Test Item Value Reference Range Interpretation Comme [facility] Mean Platelet Volume (test c ode = 61599859) 10.0 [facility] CtrNeutrophils seg % dbs8140-24-62 06:21:00* Test Item Value Reference Range Interpretation Comme nts Neutrophils (%) (Auto) (test code = 70880-9) 84.8 [facility] CtrAbsolute immature granulocyte yckng0135-34-53 06:21:00* Test Item Value Reference Range Interpretation Comme nts Absolute Immature Granulocyt e (auto (test code = 86209-6) 0.07 [facility] CtrBlood band neutrophils count (number/volume) 2024-08-13 06:21:00* Test Item Value Reference Range Interpretation Comme nts Neutrophils # (Auto) (test c ode = 28991-3) 13.58 [facility] CtrAbsolute lymphocyte [id number] 06:21:00* Test Item Value Reference Range Interpretation Comme nts Lymphocytes # (Auto) (test c ode = 74383-6) 1.05 [facility] CtrAbsolute basophil lcvmf0542-69-62 06:21:00* Test Item Value Reference Range Interpretation Comme [facility] Basophils # (Auto) (test cod e = 52970078) 0.03 [facility] CtrAbsolute NRBC [id number] 06:21:00* Test Item Value Reference Range Interpretation Comme [facility] Nucleated Red Blood Cells # (test code = 897868835) 0 [facility] CtrImmature platelet vhuosbxfsv5989-35-17 06:21:00* Test Item Value Reference Range Interpretation Comme [facility] Immature Platelet Fraction ( test code = 74676-3) 5.2 [facility] CtrRBC icqke9052-50-73 06:21:00* Test Item Value Reference Range Interpretation Comme [facility] Red Blood Count (test code = 86572744) 3.37 [facility] CtrAbsolute eosinophil tgecy1963-68-23 06:21:00* Test Item Value Reference Range Interpretation Comme nts Eosinophils # (Auto) (test c ode = NCM2004) 0.13 [facility] GkoMrkiyskvke8896-55-01 06:21:00* Test Item Value Reference Range Interpretation Comme [facility] Hematocrit (test code = 81995992) 31.9 [facility] CtrMCV (mean corpuscular volume) determination 2024-08-13 06:21:00* Test Item Value Reference Range Interpretation Comme nts Mean Corpuscular Volume (jodee t code = 66406-3) 94.7 [facility] CtrMean corpuscular hemoglobin (MCH) determination 2024-08-13 06:21:00* Test Item Value Reference Range Interpretation Comme nts Mean Corpuscular Hemoglobin (test code = 37225938) 30.6 [facility] CtrCBC W Auto Differential panel - Zuhwu5718-76-78 06:29:00* Test Item Value Reference Range Interpretation Comme nts white blood count (test code = white blood count) 11.1 K/uL 4.0-11.5 red blood count (test code = red blood count) 3.49 M/uL 3.80-5.20 L hemoglobin (test code = hemoglobin) 10.8 g/dL 10.5-15.7 hematocrit (test code = hematocrit) 32.1 % 34.0-50.0 L mean corpuscular volume (jodee t code = mean corpuscular volume) 92.0 fL 86.0-100.0 mean corpuscular hemoglobin (test code = mean corpuscular hemoglobin) 30.9 pg 26.2-33.4 mean corpuscular HGB conc (t est code = mean corpuscular HGB conc) 33.6 g/dL 30.0-34.0 red cell distribution width (test code = red cell distribution width) 13.5 % 12.0-15.5 platelet count (test code = platelet count) 152 K/uL 165-450 L ipf# (test code = ipf#) 8.5 ipf% (test code = ipf%) 5.6 % 0-8 mean platelet volume (test c ode = mean platelet volume) 10.1 fL 9.4-12.6 neutrophils % (test code = neutrophils %) 78.2 % 44.4-80.1 Ig% (test code = Ig%) 0.3 % 0.0-0.4 lymphocyte% (test code = lymphocyte%) 11.8 % 10.0-50.0 mono % (test code = mono %) 9.1 % 3.6-12.0 eos % (test code = eos %) 0.3 % 0.0-5.4 basophil % (test code = baso cesilia %) 0.3 % 0.1-1.2 absolute neutrophil count (t est code = absolute neutrophil count) 8.66 K/uL 1.56-6.13 H Ig# (test code = Ig#) 0.03 K/uL 0.00-0.03 lymph # (test code = lymph #) 1.31 K/uL 1.18-3.74 mono # (test code = mono #) 1.01 K/uL 0.24-0.86 H eos # (test code = eos #) 0.03 K/uL 0.04-0.36 L basophil # (test code = baso cesilia #) 0.03 K/uL 0.01-0.08 NRBC% (test code = NRBC%) 0 /100 WBC 0-0.2 NRBC# (test code = NRBC#) 0 K/uL [facility] [id number] 03:12:00* Test Item Value Reference Range Interpretation Comme nts .hepatitis B surface antigen (test code = .hepatitis B surface antigen) Negative negative [facility]RPR2024[facility] 13:29:00* Test Item Value Reference Range Interpretation Comme nts RPR (test code = RPR) NONREACTIVE nonreactive [facility] [id number] 13:29:00* Test Item Value Reference Range Interpretation Comme [facility] Rapid Plasma Reagin (test co de = 03848-8) NONREACTIVE [facility]PR [id number] 13:29:00* Test Item Value Reference Range Interpretation Comme nts Rapid Plasma Reagin (test co de = 59676-0) NONREACTIVE [facility]trCBC W Auto Differential panel - [id number] 11:06:00* Test Item Value Reference Range Interpretation Comme nts white blood count (test code = white blood count) 10.1 K/uL 4.0-11.5 red blood count (test code = red blood count) 4.20 M/uL 3.80-5.20 hemoglobin (test code = hemoglobin) 12.8 g/dL 10.5-15.7 hematocrit (test code = hematocrit) 38.0 % 34.0-50.0 mean corpuscular volume (jodee t code = mean corpuscular volume) 90.5 fL 86.0-100.0 mean corpuscular hemoglobin (test code = mean corpuscular hemoglobin) 30.5 pg 26.2-33.4 mean corpuscular HGB conc (t est code = mean corpuscular HGB conc) 33.7 g/dL 30.0-34.0 red cell distribution width (test code = red cell distribution width) 13.3 % 12.0-15.5 platelet count (test code = platelet count) 153 K/uL 165-450 L mean platelet volume (test c ode = mean platelet volume) 10.6 fL 9.4-12.6 neutrophils % (test code = neutrophils %) 74.0 % 44.4-80.1 Ig% (test code = Ig%) 0.8 % 0.0-0.4 H lymphocyte% (test code = lymphocyte%) 17.8 % 10.0-50.0 mono % (test code = mono %) 6.6 % 3.6-12.0 eos % (test code = eos %) 0.6 % 0.0-5.4 basophil % (test code = baso cesilia %) 0.2 % 0.1-1.2 absolute neutrophil count (t est code = absolute neutrophil count) 7.44 K/uL 1.56-6.13 H Ig# (test code = Ig#) 0.08 K/uL 0.00-0.03 H lymph # (test code = lymph #) 1.79 K/uL 1.18-3.74 mono # (test code = mono #) 0.66 K/uL 0.24-0.86 eos # (test code = eos #) 0.06 K/uL 0.04-0.36 basophil # (test code = baso cesilia #) 0.02 K/uL 0.01-0.08 NRBC% (test code = NRBC%) 0 /100 WBC 0-0.2 NRBC# (test code = NRBC#) 0 K/uL [facility] Gr[employer] and [id number] 10:59:00* Test Item Value Reference Range Interpretation Comme nts antibody screen (test code = antibody screen) NEGATIVE blood type (test code = blood type) AP [facility] HospitalNykpkQvoea-8-Lohkmpjahwiho.placental [Presence] in Vaginal [id number] 10:42:00* Test Item Value Reference Range Interpretation Comme nts amnisure (test code = amnisure) POSITIVE neg [facility] HospitalCervicovaginal discharge rapid detection of placental alpha microglobulin-1 by [id number] 10:42:00* Test Item Value Reference Range Interpretation Comme nts Amniotic Fluid Protein (test code = 74936-1) POSITIVE [facility] CtrCervicovaginal discharge rapid detection of placental alpha microglobulin-1 by [id number] 10:42:00* Test Item Value Reference Range Interpretation Comme nts Amniotic Fluid Protein (test code = 14306-1) POSITIVE [facility] Ctrculture,urine pres id [id number] 08:57:00* Test Item Value Reference Range Interpretation Comme nts culture,urine (test code = culture,urine) NO GROWTH AFTER 2 DAYS [facility] Hospitalurinalysis, [id number] 09:17:39* Test Item Value Reference Range Interpretation Comme nts Leukocytes (test code = Leukocytes) Small Nitrite (test code = Nitrite) negative Urobilinogen (test code = Urobilinogen) .2 Protein (test code = Protein) Negative pH (test code = pH) 7.0 Blood (test code = Blood) Negative Specific Clayton (test code = Specific Clayton) 1.020 Ketone (test code = Ketone) Negative Bilirubin (test code = Bilirubin) Negative Glucose (test code = Glucose) Negative Appearance (test code = Appearance) Clear Color (test code = Color) Yellow [facility] Hospitalurinalysis, [id number] 10:46:08* Test Item Value Reference Range Interpretation Comme nts Leukocytes (test code = Leukocytes) Large Nitrite (test code = Nitrite) negative Urobilinogen (test code = Urobilinogen) .2 Protein (test code = Protein) Negative pH (test code = pH) 7.0 Blood (test code = Blood) Negative Specific Clayton (test code = Specific Clayton) 1.020 Ketone (test code = Ketone) Negative Bilirubin (test code = Bilirubin) Negative Glucose (test code = Glucose) Negative Appearance (test code = Appearance) Clear Color (test code = Color) Yellow [facility]ur[facility]ysis, [id number] 09:57:13* Test Item Value Reference Range Interpretation Comme nts Leukocytes (test code = Leukocytes) Small Nitrite (test code = Nitrite) negative Urobilinogen (test code = Urobilinogen) .2 Protein (test code = Protein) Negative pH (test code = pH) 7.0 Blood (test code = Blood) Non-Hemolyzed: Trace Specific Clayton (test code = Specific Clayton) 1.025 Ketone (test code = Ketone) Negative Bilirubin (test code = Bilirubin) Negative Glucose (test code = Glucose) Negative Appearance (test code = Appearance) Clear Color (test code = Color) [facility] [id number] 10:36:35* Test Item Value Reference Range Interpretation Comme nts Leukocytes (test code = Leukocytes) Small Nitrite (test code = Nitrite) negative Urobilinogen (test code = Urobilinogen) .2 Protein (test code = Protein) Negative pH (test code = pH) 7.0 Blood (test code = Blood) Negative Specific Clayton (test code = Specific Clayton) 1.020 Ketone (test code = Ketone) Negative Bilirubin (test code = Bilirubin) Negative Glucose (test code = Glucose) Negative Appearance (test code = Appearance) Clear Color (test code = Color) [facility], [id number] 11:25:23* Test Item Value Reference Range Interpretation Comme nts Leukocytes (test code = Leukocytes) Negative Nitrite (test code = Nitrite) negative Urobilinogen (test code = Urobilinogen) .2 Protein (test code = Protein) 30 pH (test code = pH) 5.0 Blood (test code = Blood) Negative Specific Clayton (test code = Specific Clayton) 1.030 Ketone (test code = Ketone) Trace Bilirubin (test code = Bilirubin) Small Glucose (test code = Glucose) Negative Appearance (test code = Appearance) Clear Color (test code = Color) Yellow [facility]TI [id number] 00:00:00* Test Item Value Reference Range Interpretation Comme nts CT/NG (test code = CT/NG) NORMAL trichomonas vaginalis addon - swab (test code = trichomonas vaginalis addon - swab) NORMAL [facility] GroupStreptococcus agalactiae [Presence] in Vag+Rectum by Organism specific [id number] 00:00:00* Test Item Value Reference Range Interpretation Comme nts group B strep (test code = g roup B strep) NEGATIVE [facility] Groupurinalysis, [id number] 10:09:45* Test Item Value Reference Range Interpretation Comme nts Leukocytes (test code = Leukocytes) Small Nitrite (test code = Nitrite) negative Urobilinogen (test code = Urobilinogen) .2 Protein (test code = Protein) 30 pH (test code = pH) 7.5 Blood (test code = Blood) Negative Specific Clayton (test code = Specific [place]) 1.020 Ketone (test code = Ketone) Negative Bilirubin (test code = Bilirubin) Negative Glucose (test code = Glucose) Negative Appearance (test code = Appearance) Clear Color (test code = Color) Yellow [facility] GroupGlucose [Mass/volume] in Serum or Plasma --1 hour post dose [id number] 15:01:00* Test Item Value Reference Range Interpretation Comme nts Results (test code = Results) 113 [facility] GroupUrinalysis macro (dipstick) panel - [id number] 11:01:14* Test Item Value Reference Range Interpretation Comme nts Leukocytes (test code = Leukocytes) Trace Nitrite (test code = Nitrite) negative Urobilinogen (test code = Urobilinogen) .2 Protein (test code = Protein) Negative pH (test code = pH) 6.5 Blood (test code = Blood) Negative Specific Clayton (test code = Specific Clayton) 1.015 Ketone (test code = Ketone) Negative Bilirubin (test code = Bilirubin) Negative Glucose (test code = Glucose) Negative Appearance (test code = Appearance) Clear Color (test code = Color) Yellow [facility] GroupChoriogonadotropin.intact+Beta subunit [Units/volume] in Serum or [id number] 00:00:00* Test Item Value Reference Range Interpretation Comme nts Choriogonadotropin.intact+Be ta subunit [Units/volume] in Serum or Plasma (test code = 84317-8) 28678 mIU/mL [facility], [id number] 13:08:00* Test Item Value Reference Range Interpretation Comme nts HCG (test code = HCG) positive [facility]-[id number] 07:41:00* Test Item Value Reference Range Interpretation Comme nts gentamicin (test code = gentamicin) <=2 ampicillin (test code = ampicillin) >16 trimethoprim/sulfamethoxazol e (test code = trimethoprim/sulfamethoxazole) <=0.5/9.5 tetracycline (test code = tetracycline) >8 amoxacillin/clavulanate (jodee t code = amoxacillin/clavulanate) <=4/2 tobramycin (test code = tobramycin) <=2 nitrofurantoin (test code = nitrofurantoin) 64 cefoxitin (test code = cefoxitin) <=4 levofloxacin (test code = levofloxacin) <=0.5 ceftazidime (test code = ceftazidime) <=2 ceftriaxone (test code = ceftriaxone) <=1 ciprofloxacin (test code = ciprofloxacin) <=0.25 ampicillin/sulbactam (test c ode = ampicillin/sulbactam) 8/4 ceftazidime-avibactam (test code = ceftazidime-avibactam) 0.5/4 ertapenem (test code = ertapenem) <=0.25 aztreonam (test code = aztreonam) <=2 cefepime (test code = cefepime) <=1 cefuroxime (test code = cefuroxime) <=4 meropenem (test code = meropenem) <=0.5 amikacin (test code = amikacin) <=8 pip/tazo (test code = pip/tazo) 8/4 [facility] pres [facility] [id number] 09:00:00* Test Item Value Reference Range Interpretation Comme nts culture,urine (test code = culture,urine) specimen has been received in lab and IS in progress. [facility] HospitalUrinalysis macro (dipstick) panel - [id number] 08:44:00* Test Item Value Reference Range Interpretation Comme nts Leukocytes (test code = Leukocytes) Negative Nitrite (test code = Nitrite) negative Urobilinogen (test code = Urobilinogen) .2 Protein (test code = Protein) Negative pH (test code = pH) 7.0 Blood (test code = Blood) Hemolyzed: Trace Specific Clayton (test code = Specific Clayton) 1.025 Ketone (test code = Ketone) Negative Bilirubin (test code = Bilirubin) Negative Glucose (test code = Glucose) Negative Appearance (test code = Appearance) Clear Color (test code = Color) Yellow [facility] HospitalUrinalysis macro (dipstick) panel - [id number] 11:30:59* Test Item Value Reference Range Interpretation Comme nts Leukocytes (test code = Leukocytes) Negative Nitrite (test code = Nitrite) negative Urobilinogen (test code = Urobilinogen) .2 Protein (test code = Protein) Negative pH (test code = pH) 7.0 Blood (test code = Blood) Large Specific Clayton (test code = Specific Clayton) 1.010 Ketone (test code = Ketone) Negative Bilirubin (test code = Bilirubin) Negative Glucose (test code = Glucose) Negative Appearance (test code = Appearance) Clear Color (test code = Color) Yellow [facility] HospitalBacteria identified in Urine by Bmdhkpu9533-10-56 10:57:00Bacteria Ur [facility] SystemCom[facility] 2000 panel - Serum or [id number] 10:57:00* Test Item Value Reference Range Interpretation Comme nts glucose (test code = glucose) 79 mg/dL 74-106 Urea nitrogen [Mass/volume] in Serum or Plasma (test code = 3094-0) 16 mg/dL 6-20 osmolality calculated,serum (test code = osmolality calculated,serum) 274 mOsm/kg 280-300 L creatinine (test code = creatinine) 0.5 mg/dL 0.50-0.90 glomerular filtration rate ( test code = glomerular filtration rate) >60.00 Urea nitrogen/Creatinine [Ma ss Ratio] in Serum or Plasma (test code = 3097-3) 32.0 12-20 H sodium level (test code = so dium level) 137 mmol/L 135-145 Potassium [Moles/volume] in Body fluid (test code = 2821-7) 4.0 mmol/L 3.5-5.2 chloride level (test code = chloride level) 100 mmol/L 98-108 CO2 (test code = CO2) 24 mmol/L 21-32 anion gap (test code = anion gap) 17.0 mEq/L 12-20 calcium level (test code = calcium level) 10.4 mg/dL 8.6-10.0 H total protein (test code = t otal protein) 7.8 g/dL 6.6-8.7 albumin (test code = albumin) 4.8 g/dL 3.5-5.2 globulin (test code = globulin) 3.0 gm/dL A/G ratio (test code = A/G ratio) 1.6 >1.0 bilirubin,total (test code = bilirubin,total) 0.9 mg/dL 0.0-1.2 AST/SGOT (test code = AST/SGOT) 16 U/L 15-32 Alanine aminotransferase [Enzymatic activity/volume] in Serum or Plasma (test code = 1742-6) 14 U/L 0-33 Alkaline phosphatase [Enzyma tic activity/volume] in Serum or Plasma (test code = 6768-6) 73 U/L 35-105 [facility] sensitivity testing, [id number] 10:57:00* Test Item Value Reference Range Interpretation Comme nts Gentamicin [Susceptibility] by Minimum inhibitory concentration (EDEN) (test code = 267-5) <=2 Ampicillin [Susceptibility] by Minimum inhibitory concentration (EDEN) (test code = 28-1) <=4 ceFAZolin [Susceptibility] b y Minimum inhibitory concentration (EDEN) (test code = 76-0) 2 ug/mL Trimethoprim+Sulfamethoxazol e [Susceptibility] by Minimum inhibitory concentration (EDEN) (test code = 516-5) =0.5 Tetracycline [Susceptibility ] by Minimum inhibitory concentration (EDEN) (test code = 496-0) <=2 Amoxicillin+Clavulanate [Susceptibility] by Minimum inhibitory concentration (EDEN) (test code = 20-8) =4/2 Tobramycin [Susceptibility] by Minimum inhibitory concentration (EDEN) (test code = 508-2) <=2 Nitrofurantoin [Susceptibili ty] by Minimum inhibitory concentration (EDEN) (test code = 363-2) 32 ug/mL cefOXitin [Susceptibility] b y Minimum inhibitory concentration (EDEN) (test code = 116-4) 8 ug/mL levoFLOXacin [Susceptibility ] by Minimum inhibitory concentration (EDEN) (test code = 54130-4) <=0.5 cefTAZidime [Susceptibility] by Minimum inhibitory concentration (EDEN) (test code = 133-9) <=2 cefTRIAXone [Susceptibility] by Minimum inhibitory concentration (EDEN) (test code = 141-2) <=1 Ciprofloxacin [Susceptibilit y] by Minimum inhibitory concentration (EDEN) (test code = 185-9) <=0.25 Ampicillin+Sulbactam [Susceptibility] by Minimum inhibitory concentration (EDEN) (test code = 32-3) =4/2 Ertapenem [Susceptibility] b y Minimum inhibitory concentration (EDEN) (test code = 93710-3) <=0.25 Aztreonam [Susceptibility] b y Minimum inhibitory concentration (EDEN) (test code = 44-8) <=2 Cefepime [Susceptibility] by Minimum inhibitory concentration (EDEN) (test code = 6644-9) <=1 Meropenem [Susceptibility] b y Minimum inhibitory concentration (EDEN) (test code = 6652-2) <=0.5 Moxifloxacin [Susceptibility ] by Minimum inhibitory concentration (DEEN) (test code = 47725-8) <=1 Amikacin [Susceptibility] by Minimum inhibitory concentration (EDEN) (test code = 12-5) <=8 Piperacillin+Tazobactam [Susceptibility] by Minimum inhibitory concentration (EDEN) (test code = 412-7) =2/4 Ceftaroline [Susceptibility] by Minimum inhibitory concentration (EDEN) (test code = 17587-8) <=0.25 Tigecycline [Susceptibility] by Minimum inhibitory concentration (EDEN) (test code = 99026-8) <=1 [facility] W Auto Differential panel - [id number] 00:00:00 * Test Item Value Reference Range Interpretation Comme nts white blood count (test code = white blood count) 6.4 K/uL 4.0-11.5 red blood count (test code = red blood count) 4.71 M/uL 3.80-5.20 hemoglobin (test code = hemoglobin) 13.9 g/dL 10.5-15.7 hematocrit (test code = hematocrit) 43.2 % 34.0-50.0 MCV [Entitic volume] (test c ode = 46956-6) 91.7 fL 86-100 mean corpuscular hemoglobin (test code = mean corpuscular hemoglobin) 29.5 pg 26.2-33.4 mean corpuscular HGB conc (t est code = mean corpuscular HGB conc) 32.2 g/dL 30-34 red cell distribution width (test code = red cell distribution width) 12.9 % 12.0-15.5 platelet count (test code = platelet count) 284 K/uL 165-450 mean platelet volume (test c ode = mean platelet volume) 10.8 fL 9.4-12.6 Segmented neutrophils/100 leukocytes in Blood (test code = 42340-4) 57.4 % 44.4-80.1 Immature granulocytes [#/vol ume] in Blood (test code = 83808-6) 0.0 K/uL 0.0-0.03 lymphocyte% (test code = lymphocyte%) 32.4 % 10.0-50.0 mono % (test code = mono %) 7.5 % 3.6-12.0 eos % (test code = eos %) 1.6 % 0.0-5.4 Basophils/100 leukocytes in Unspecified specimen (test code = 52670-8) 0.9 % 0.1-1.2 Band form neutrophils [#/vol ume] in Blood (test code = 06673-5) 3.69 K/uL 1.56-6.13 Lymphocytes [#/volume] in Unspecified specimen by Automated count (test code = 12503-7) 2.1 K/uL 1.18-3.74 mono # (test code = mono #) 0.48 K/uL 0.24-0.86 eos # (test code = eos #) 0.10 K/uL 0.04-0.36 basophil # (test code = baso cesilia #) 0.06 K/uL 0.01-0.08 NRBC% (test code = NRBC%) 0 /100 WBC 0-0.2 NRBC# (test code = NRBC#) 0 K/uL [facility] HospitalDifferential panel, method unspecified - [id number] 00:00:00NeutrophilsBandLymphocyteAtypical LymphMonocyteEosinophilBasophilAbs Neutrophil Count (Man)Abs Lymph Count (Man)Abs Monocyte Count (Man)Abs Eosinophil Count (Man)Abs Basophil Count (Man)Platelet EstimatePlatelet MorphologyHypochromasiaAnisocytosisCrenated RBCMataAnderson Regional Medical Center Thyrotropin [Units/volume] in Serum or [id number] 00:00:00* Test Item Value Reference Range Interpretation Comme nts Thyrotropin [Units/volume] i n Serum or Plasma (test code = 3016-3) 2.34 uIU/mL 0.36-3.74 [facility] HospitalThyroxine (T4) free [Mass/volume] in Serum or Plasma 2021-10-07 00:00:00* Test Item Value Reference Range Interpretation Comme nts free T4 (test code = free T4) 1.22 NG/dL 0.93-1.7 [facility] HospitalChoriogonadotropin.beta subunit [Units/volume] in Serum or [id number] 00:00:00* Test Item Value Reference Range Interpretation Comme nts HCG quantitative (test code = HCG quantitative) <0.1 0-5 [facility] ([facility]19[facility] RNA [Presence] in Respiratory specimen by LEON with probe coieikqmv7693-38-92 04:59:7294576-5RfhemncriMethodist Olive [facility] HospitalUrinalysis macro (dipstick) panel - [id number] 09:52:43* Test Item Value Reference Range Interpretation Comme nts Leukocytes (test code = Leukocytes) Small Nitrite (test code = Nitrite) negative Urobilinogen (test code = Urobilinogen) .2 Protein (test code = Protein) 100 pH (test code = pH) 7.5 Blood (test code = Blood) Large Specific Clayton (test code = Specific Clayton) 1.025 Ketone (test code = Ketone) Negative Bilirubin (test code = Bilirubin) Negative Glucose (test code = Glucose) Negative Appearance (test code = Appearance) Cloudy Color (test code = Color) Yellow [facility] HospitalUrinalysis macro (dipstick) panel - [id number] 14:01:05* Test Item Value Reference Range Interpretation Comme nts Leukocytes (test code = Leukocytes) Small Nitrite (test code = Nitrite) negative Urobilinogen (test code = Urobilinogen) .2 Protein (test code = Protein) Negative pH (test code = pH) 7.0 Blood (test code = Blood) Negative Specific Clayton (test code = Specific Clayton) 1.015 Ketone (test code = Ketone) Negative Bilirubin (test code = Bilirubin) Negative Glucose (test code = Glucose) Negative Appearance (test code = Appearance) Clear Color (test code = Color) Yellow [facility] HospitalARS[facility]CoV-[facility] (COVID-19) RNA [Presence] in Respiratory specimen by LEON with probe [id number] 01:38:3983898-0VomdumqjgScott Regional Hospitalmrsv fewurs1441-34-54 01:38:00* Test Item Value Reference Range Interpretation Comme nts [id number] (test code = hce3265) RSV positive [facility] HospitalUrinalysis macro (dipstick) panel - [id number] 11:23:13* Test Item Value Reference Range Interpretation Comme nts Leukocytes (test code = Leukocytes) Small Nitrite (test code = Nitrite) negative Urobilinogen (test code = Urobilinogen) .2 Protein (test code = Protein) Negative pH (test code = pH) 7.0 Blood (test code = Blood) Non-Hemolyzed: Trace Specific Clayton (test code = Specific [place]) 1.015 Ketone (test code = Ketone) Negative Bilirubin (test code = Bilirubin) Negative Glucose (test code = Glucose) Negative Appearance (test code = Appearance) Clear Color (test code = Color) Yellow [facility] HospitalUrinalysis macro (dipstick) panel - [id number] 09:11:32* Test Item Value Reference Range Interpretation Comme nts Leukocytes (test code = Leukocytes) Trace Nitrite (test code = Nitrite) negative Urobilinogen (test code = Urobilinogen) .2 Protein (test code = Protein) Negative pH (test code = pH) 6.5 Blood (test code = Blood) Negative Specific [place] (test code = Specific [place]) 1.015 Ketone (test code = Ketone) Negative Bilirubin (test code = Bilirubin) Negative Glucose (test code = Glucose) Negative Appearance (test code = Appearance) Clear Color (test code = Color) Yellow [facility] GroupUrinalysis macro (dipstick) panel - [id number] 11:14:36* Test Item Value Reference Range Interpretation Comme nts Leukocytes (test code = Leukocytes) Small Nitrite (test code = Nitrite) negative Urobilinogen (test code = Urobilinogen) 1 Protein (test code = Protein) 30 pH (test code = pH) 7.5 Blood (test code = Blood) Negative Specific Clayton (test code = Specific [place]) 1.020 Ketone (test code = Ketone) Negative Bilirubin (test code = Bilirubin) Negative Glucose (test code = Glucose) Negative Appearance (test code = Appearance) Clear Color (test code = Color) Yellow [facility] GroupUrinalysis macro (dipstick) panel - [id number] 11:03:02* Test Item Value Reference Range Interpretation Comme nts Leukocytes (test code = Leukocytes) Negative Nitrite (test code = Nitrite) negative Urobilinogen (test code = Urobilinogen) .2 Protein (test code = Protein) Negative pH (test code = pH) 7.0 Blood (test code = Blood) Negative Specific Clayton (test code = Specific [place]) 1.025 Ketone (test code = Ketone) Negative Bilirubin (test code = Bilirubin) Negative Glucose (test code = Glucose) Negative Appearance (test code = Appearance) Clear Color (test code = Color) Yellow [facility] HospitalUrinalysis macro (dipstick) panel - [id number] 10:23:16* Test Item Value Reference Range Interpretation Comme nts Leukocytes (test code = Leukocytes) Trace Nitrite (test code = Nitrite) negative Urobilinogen (test code = Urobilinogen) .2 Protein (test code = Protein) Negative pH (test code = pH) 7.0 Blood (test code = Blood) Negative Specific Clayton (test code = Specific Clayton) 1.025 Ketone (test code = Ketone) Negative Bilirubin (test code = Bilirubin) Negative Glucose (test code = Glucose) Negative Appearance (test code = Appearance) Clear Color (test code = Color) Yellow [facility] [Mass/volume] in Serum or Plasma --1 hour post dose [id number] 10:19:00* Test Item Value Reference Range Interpretation Comme nts Results (test code = Results) 122 [facility] HospitalUrinalysis macro (dipstick) panel - [id number] 08:40:20* Test Item Value Reference Range Interpretation Comme nts Leukocytes (test code = Leukocytes) Negative Nitrite (test code = Nitrite) negative Urobilinogen (test code = Urobilinogen) .2 Protein (test code = Protein) Negative pH (test code = pH) 7.0 Blood (test code = Blood) Non-Hemolyzed: Trace Specific Clayton (test code = Specific Clayton) 1.020 Ketone (test code = Ketone) Negative Bilirubin (test code = Bilirubin) Negative Glucose (test code = Glucose) Negative Appearance (test code = Appearance) Clear Color (test code = Color) Yellow [facility]CB [facility] Auto Differential panel - [id number] 07:07:00 * Test Item Value Reference Range Interpretation Comme nts white blood count (test code = white blood count) 7.3 K/uL 4.0-11.5 red blood count (test code = red blood count) 4.09 M/uL 3.80-5.20 hemoglobin (test code = hemoglobin) 12.6 g/dL 10.5-15.7 hematocrit (test code = hematocrit) 38.8 % 34.0-50.0 MCV [Entitic volume] (test c ode = 61408-5) 94.9 fL 86-100 mean corpuscular hemoglobin (test code = mean corpuscular hemoglobin) 30.8 pg 26.2-33.4 mean corpuscular HGB conc (t est code = mean corpuscular HGB conc) 32.5 g/dL 30-34 red cell distribution width (test code = red cell distribution width) 13.0 % 12.0-15.5 platelet count (test code = platelet count) 179 K/uL 165-450 mean platelet volume (test c ode = mean platelet volume) 10.8 fL 9.4-12.6 Segmented neutrophils/100 leukocytes in Blood (test code = 90800-7) 69.7 % 44.4-80.1 Immature granulocytes [#/vol ume] in Blood (test code = 10926-6) 0.0 K/uL 0.0-0.03 H lymphocyte% (test code = lymphocyte%) 22.5 % 10.0-50.0 mono % (test code = mono %) 5.4 % 3.6-12.0 eos % (test code = eos %) 1.5 % 0.0-5.4 Basophils/100 leukocytes in Unspecified specimen (test code = 03844-4) 0.4 % 0.1-1.2 Band form neutrophils [#/vol ume] in Blood (test code = 01494-4) 5.07 K/uL 1.56-6.13 Lymphocytes [#/volume] in Unspecified specimen by Automated count (test code = 08510-1) 1.6 K/uL 1.18-3.74 mono # (test code = mono #) 0.39 K/uL 0.24-0.86 eos # (test code = eos #) 0.11 K/uL 0.04-0.36 basophil # (test code = baso cesilia #) 0.03 K/uL 0.01-0.08 NRBC% (test code = NRBC%) 0 /100 WBC 0-0.2 NRBC# (test code = NRBC#) 0 K/uL [facility] [Presence] in Serum or Plasma 2021-02-17 07:07:00* Test Item Value Reference Range Interpretation Comme nts Blood group antibody screen [Presence] in Serum or Plasma (test code = 890-4) negative [facility] GroupReagin Ab [Presence] in Serum by [id number] 07:07:00* Test Item Value Reference Range Interpretation Comme nts Reagin Ab [Presence] in Seru m by RPR (test code = 34656-5) nonreactive nonreactive [facility] GroupHIV 1+2 Ab [Presence] in [id number] 07:07:00HIV P24 AgHIV-1/2 AbMatagorda Medical GroupUrinalysis macro (dipstick) panel - Urine 2020-11-25 11:57:57* Test Item Value Reference Range Interpretation Comme nts Leukocytes (test code = Leukocytes) Negative Nitrite (test code = Nitrite) negative Urobilinogen (test code = Urobilinogen) 1 Protein (test code = Protein) Negative pH (test code = pH) 7.0 Blood (test code = Blood) Negative Specific Clayton (test code = Specific Clayton) 1.030 Ketone (test code = Ketone) Negative Bilirubin (test code = Bilirubin) Negative Glucose (test code = Glucose) Negative Appearance (test code = Appearance) Clear Color (test code = Color) Yellow [facility] HospitalChromosome 13+18+21+X+Y aneuploidy in Blood by Molecular genetics method [id number] 00:00:00* Test Item Value Reference Range Interpretation Comme nts report summary (test code = report summary) see notes report note (test code = report note) see notes trisomy 13 age-based risk text (test code = trisomy 13 age-based risk text) 1/7,826 (0.01%) trisomy 13 risk score text (test code = trisomy 13 risk score text) <1/10,000 (<0.01%) trisomy 13 result text (test code = trisomy 13 result text) low risk trisomy 18 age-based risk text (test code = trisomy 18 age-based risk text) 1/2,484 (0.04%) trisomy 18 risk score text (test code = trisomy 18 risk score text) <1/10,000 (<0.01%) trisomy 18 result text (test code = trisomy 18 result text) low risk trisomy 21 age-based risk text (test code = trisomy 21 age-based risk text) 1/1,068 (0.09%) trisomy 21 risk score text (test code = trisomy 21 risk score text) <1/10,000 (<0.01%) trisomy 21 result text (test code = trisomy 21 result text) low risk monosomy X age-based risk text (test code = monosomy X age-based risk text) 1/255 (0.39%) monosomy X risk score text (test code = monosomy X risk score text) <1/10,000 (<0.01%) monosomy X result text (test code = monosomy X result text) low risk 22Q11.2 deletion syndrome population-based risk text (test code = 22Q11.2 deletion syndrome population-based risk text) 1/2,000 22Q11.2 deletion syndrome risk score text (test code = 22Q11.2 deletion syndrome risk score text) 1/9,000 22Q11.2 deletion syndrome result text (test code = 22Q11.2 deletion syndrome result text) low risk prader-willi syndrome population-based risk text (test code = prader-willi syndrome population-based risk text) 1/10,000 prader-willi syndrome risk score text (test code = prader-willi syndrome risk score text) 1/13,800 prader-willi syndrome result text (test code = prader-willi syndrome result text) low risk angelman syndrome population-based risk text (test code = angelman syndrome population-based risk text) 1/12,000 angelman syndrome risk score text (test code = angelman syndrome risk score text) 1/16,600 angelman syndrome result text (test code = angelman syndrome result text) low risk cri-du-chat syndrome population-based risk text (test code = cri-du-chat syndrome population-based risk text) 1/20,000 cri-du-chat syndrome risk score text (test code = cri-du-chat syndrome risk score text) 157,100 cri-du-chat syndrome result text (test code = cri-du-chat syndrome result text) low risk 1P36 deletion syndrome population-based risk text (test code = 1P36 deletion syndrome population-based risk text) 1/5,000 1P36 deletion syndrome risk score text (test code = 1P36 deletion syndrome risk score text) 112,400 1P36 deletion syndrome result text (test code = 1P36 deletion syndrome result text) low risk triploidy result text (test code = triploidy result text) low risk gender of fetus (test code = gender of fetus) female fraction (test code = fraction) 13.1% footnotes (test code = footnotes) see notes [facility] GroupGenetic screen in Unspecified specimen by Molecular genetics method [id number] 00:00:00* Test Item Value Reference Range Interpretation Comme nts alpha-thalassemia (test code = alpha-thalassemia) negative beta-hemoglobinopathies (jodee t code = beta-hemoglobinopathies) negative martha disease (test code = martha disease) negative cystic fibrosis (test code = cystic fibrosis) negative duchenne/townsend muscular dys trophy (test code = duchenne/townsend muscular dystrophy) negative familial dysautonomia (test code = familial dysautonomia) negative fragile X syndrome (test cod e = fragile X syndrome) negative galactosemia (test code = galactosemia) negative gaucher disease (test code = gaucher disease) negative medium chain acyl-coa dehydr ogenase deficiency (test code = medium chain acyl-coa dehydrogenase deficiency) negative polycystic kidney disease, autosomal recessive (test code = polycystic kidney disease, autosomal recessive) negative njawb-vkwcx-oyohw syndrome ( test code = bvatt-xvfqp-gtiun syndrome) negative spinal muscular atrophy (jodee t code = spinal muscular atrophy) negative tayo-sachs disease (DNA only) (test code = tayo-sachs disease (DNA only)) negative panel notes (test code = [place] notes) see notes report note (test code = rep ort note) see notes footnotes (test code = footnotes) see notes [facility] HospitalUrinalysis macro (dipstick) panel - [id number] 16:15:12* Test Item Value Reference Range Interpretation Comme nts Leukocytes (test code = Leukocytes) Small Nitrite (test code = Nitrite) negative Urobilinogen (test code = Urobilinogen) 1 Protein (test code = Protein) Negative pH (test code = pH) 6.5 Blood (test code = Blood) Non-Hemolyzed: Trace Specific Clayton (test code = Specific Clayton) 1.030 Ketone (test code = Ketone) Trace Bilirubin (test code = Bilirubin) Negative Glucose (test code = Glucose) Negative Appearance (test code = Appearance) Clear Color (test code = Color) Yellow [facility] + CT/NG + reflex HR [id number] 00:00:00* Test Item Value Reference Range Interpretation Comme nts TP reflex HPV ASCUS-CT/NG (t est code = TP reflex HPV ASCUS-CT/NG) normal CT/NG (test code = CT/NG) normal [facility] W Auto Differential panel - [id number] 03:55:00 * Test Item Value Reference Range Interpretation Comme nts white blood count (test code = white blood count) 9.0 K/uL 4.0-11.5 red blood count (test code = red blood count) 4.34 M/uL 3.80-5.20 hemoglobin (test code = hemoglobin) 13.5 g/dL 10.5-15.7 hematocrit (test code = hematocrit) 40.3 % 34.0-50.0 MCV [Entitic volume] (test c ode = 76472-3) 92.9 fL 86-100 mean corpuscular hemoglobin (test code = mean corpuscular hemoglobin) 31.1 pg 26.2-33.4 mean corpuscular HGB conc (t est code = mean corpuscular HGB conc) 33.5 g/dL 30-34 red cell distribution width (test code = red cell distribution width) 12.1 % 12.0-15.5 platelet count (test code = platelet count) 255 K/uL 165-450 mean platelet volume (test c ode = mean platelet volume) 10.8 fL 9.4-12.6 Segmented neutrophils/100 leukocytes in Blood (test code = 39741-8) 67.0 % 44.4-80.1 Immature granulocytes [#/vol ume] in Blood (test code = 40981-6) 0.0 K/uL 0.0-0.03 lymphocyte% (test code = lymphocyte%) 23.5 % 10.0-50.0 mono % (test code = mono %) 7.9 % 3.6-12.0 eos % (test code = eos %) 1.0 % 0.0-5.4 Basophils/100 leukocytes in Unspecified specimen (test code = 14178-8) 0.3 % 0.1-1.2 Band form neutrophils [#/vol ume] in Blood (test code = 65768-2) 5.99 K/uL 1.56-6.13 Lymphocytes [#/volume] in Unspecified specimen by Automated count (test code = 63271-9) 2.1 K/uL 1.18-3.74 mono # (test code = mono #) 0.71 K/uL 0.24-0.86 eos # (test code = eos #) 0.09 K/uL 0.04-0.36 basophil # (test code = baso cesilia #) 0.03 K/uL 0.01-0.08 NRBC% (test code = NRBC%) 0 /100 WBC 0-0.2 NRBC# (test code = NRBC#) 0 K/uL [facility] GroupABO & Rh group [Type] in [id number] 03:55:00* Test Item Value Reference Range Interpretation Comme nts Rh [Type] in Blood (test cod e = 37466-0) 4+ ABO and Rh group panel - Blo od (test code = 34213-2) A positive [facility] Group[facility] group antibody screen [Presence] in Serum or Plasma 2020-09-27 03:55:00* Test Item Value Reference Range Interpretation Comme nts Blood group antibody screen [Presence] in Serum or Plasma (test code = 890-4) negative [facility] GroupHIV 1+2 Ab [Presence] in [id number] 03:55:00HIV P24 AgHIV-1/2 AbMatagorda Medical GroupHepatitis B virus surface Ag [Presence] in [id number] 03:55:00* Test Item Value Reference Range Interpretation Comme nts .hepatitis B surface antigen (test code = .hepatitis B surface antigen) negative negative [facility] GroupBacteria identified in Urine by [id number] 03:55:00* Test Item Value Reference Range Interpretation Comme nts Bacteria identified in Urine by Culture (test code = 630-4) no growth at 2 days [facility] GroupReagin Ab [Presence] in Serum by [id number] 03:55:00* Test Item Value Reference Range Interpretation Comme nts Reagin Ab [Presence] in Seru m by RPR (test code = 99944-7) nonreactive nonreactive [facility] GroupChoriogonadotropin.beta subunit [Units/volume] in Serum or [id number] 03:46:00* Test Item Value Reference Range Interpretation Comme nts HCG quantitative (test code = HCG quantitative) <0.1 0-5 [facility] GroupUrinalysis macro (dipstick) panel - [id number] 15:50:00* Test Item Value Reference Range Interpretation Comme nts Leukocytes (test code = Leukocytes) Small Nitrite (test code = Nitrite) negative Urobilinogen (test code = Urobilinogen) .2 Protein (test code = Protein) Negative pH (test code = pH) 7.0 Blood (test code = Blood) Negative Specific Clayton (test code = Specific Clayton) 1.025 Ketone (test code = Ketone) Negative Bilirubin (test code = Bilirubin) Negative Glucose (test code = Glucose) Negative Appearance (test code = Appearance) Clear Color (test code = Color) Yellow [facility]Ur[facility] (dipstick) panel - [id number] 14:31:00* Test Item Value Reference Range Interpretation Comme nts Leukocytes (test code = Leukocytes) Trace Nitrite (test code = Nitrite) negative Urobilinogen (test code = Urobilinogen) .2 Protein (test code = Protein) Negative pH (test code = pH) 6.0 Blood (test code = Blood) Negative Specific Clayton (test code = Specific Clayton) 1.020 Ketone (test code = Ketone) Negative Bilirubin (test code = Bilirubin) Negative Glucose (test code = Glucose) Negative Appearance (test code = Appearance) Clear Color (test code = Color) Yellow [facility] HospitalBacteria identified in Urine by [id number] 02:12:00* Test Item Value Reference Range Interpretation Comme nts Bacteria identified in Urine by Culture (test code = 630-4) no growth after 2 days. [facility]CB [facility] Auto Differential panel - [id number] 04:07:00 * Test Item Value Reference Range Interpretation Comme nts white blood count (test code = white blood count) 11.9 K/uL 4.0-11.5 H red blood count (test code = red blood count) 3.64 M/uL 3.80-5.20 L Hemoglobin [Mass/volume] in Blood (test code = 718-7) 11.1 g/dL 10.5-15.7 hematocrit (test code = hematocrit) 33.3 % 34.0-50.0 L Erythrocyte mean corpuscular volume [Entitic volume] (test code = 20190-6) 91.4 fL 78-98 Erythrocyte mean corpuscular hemoglobin [Entitic mass] (test code = 66193-5) 30.4 pg 26.2-33.4 mean corpuscular HGB conc (t est code = mean corpuscular HGB conc) 33.3 g/dL 31.5-36.2 red cell distribution width (test code = red cell distribution width) 14.1 % 11.5-15.5 Platelets [#/volume] in Bloo d (test code = 10492-6) 150 K/uL 137-338 Platelet mean volume [Entiti c volume] in Blood (test code = 64857-6) 8.6 fL 8.4-11.8 Neutrophils.band form/100 leukocytes in Blood (test code = 79954-7) 71.2 % 44.4-80.1 Lymphocytes/100 leukocytes i n Body fluid (test code = 87420-9) 16.9 % 10.0-50.0 Monocytes/100 leukocytes in Blood by Automated count (test code = 5905-5) 11.0 % 3.6-12.04 Eosinophils/100 leukocytes i n Blood by Automated count (test code = 713-8) 0.3 % 0.0-5.41 Basophils/100 leukocytes in Blood by Automated count (test code = 706-2) 0.6 % 0.0-0.79 [facility] W Auto Differential panel - [id number] 01:41:00 * Test Item Value Reference Range Interpretation Comme nts white blood count (test code = white blood count) 9.9 K/uL 4.0-11.5 red blood count (test code = red blood count) 4.08 M/uL 3.80-5.20 Hemoglobin [Mass/volume] in Blood (test code = 718-7) 12.5 g/dL 10.5-15.7 hematocrit (test code = hematocrit) 37.2 % 34.0-50.0 Erythrocyte mean corpuscular volume [Entitic volume] (test code = 26820-9) 91.1 fL 78-98 Erythrocyte mean corpuscular hemoglobin [Entitic mass] (test code = 45288-8) 30.5 pg 26.2-33.4 mean corpuscular HGB conc (t est code = mean corpuscular HGB conc) 33.5 g/dL 31.5-36.2 red cell distribution width (test code = red cell distribution width) 13.9 % 11.5-15.5 Platelets [#/volume] in Bloo d (test code = 34148-3) 177 K/uL 137-338 Platelet mean volume [Entiti c volume] in Blood (test code = 09922-9) 9.4 fL 8.4-11.8 Neutrophils.band form/100 leukocytes in Blood (test code = 28481-5) 74.2 % 44.4-80.1 Lymphocytes/100 leukocytes i n Body fluid (test code = 73978-8) 17.1 % 10.0-50.0 Monocytes/100 leukocytes in Blood by Automated count (test code = 5905-5) 8.0 % 3.6-12.04 Eosinophils/100 leukocytes i n Blood by Automated count (test code = 713-8) 0.3 % 0.0-5.41 Basophils/100 leukocytes in Blood by Automated count (test code = 706-2) 0.5 % 0.0-0.79 [facility]Reagin Ab [Presence] in Serum by [id number] 01:41:00* Test Item Value Reference Range Interpretation Comme nts Reagin Ab [Presence] in Seru m by RPR (test code = 13323-1) nonreactive nonreactive [facility] HospitalHepatitis B virus surface Ag [Presence] in Serum 2018-10-19 01:41:00* Test Item Value Reference Range Interpretation Comme nts .hepatitis B surface antigen (test code = .hepatitis B surface antigen) negative negative [facility] HospitalUrinalysis macro (dipstick) panel - [id number] 15:09:44* Test Item Value Reference Range Interpretation Comme nts Leukocytes (test code = Leukocytes) Small Nitrite (test code = Nitrite) negative Urobilinogen (test code = Urobilinogen) 2 Protein (test code = Protein) Trace pH (test code = pH) 7.0 Blood (test code = Blood) Negative Specific Clayton (test code = Specific Clayton) 1.020 Ketone (test code = Ketone) Negative Bilirubin (test code = Bilirubin) Negative Glucose (test code = Glucose) Negative Appearance (test code = Appearance) Clear Color (test code = Color) Yellow [facility] HospitalUrinalysis macro (dipstick) panel - [id number] 09:31:32* Test Item Value Reference Range Interpretation Comme nts Leukocytes (test code = Leukocytes) Negative Nitrite (test code = Nitrite) negative Urobilinogen (test code = Urobilinogen) 8 Protein (test code = Protein) Trace pH (test code = pH) 7.0 Blood (test code = Blood) Negative Specific Clayton (test code = Specific Clayton) 1.015 Ketone (test code = Ketone) Large Bilirubin (test code = Bilirubin) Small Glucose (test code = Glucose) Negative Appearance (test code = Appearance) Slightly Cloudy Color (test code = Color) [place] [facility] Notes <thead> Date/Time Note Provider Source [facility] [id number] 21:56:00 Please follow up with Dr. Harsh peters in 1-2 days Future Tests Future scheduled test information is unavailable Pending Tests <thead> Test Name Ordered Date Scheduled Date September 17, 2014 2:15pm DIAGNOSIS: September 17, 2014 2:15pm RECOMMENDATION: September 17, 2014 2:15pm SPECIMEN ADEQUACY September 17, 2014 2:15pm September 17, 2014 2:15pm SOURCE September 17, 2014 2:15pm CLINICAL HISTORY September 17, 2014 2:15pm -MRFX September 17, 2014 2:15pm AMENDED REPORT: September 17, 2014 2:15pm ADDITIONAL COMMENT: September 17, 2014 2:15pm ADDENDUM: September 17, 2014 2:15pm MATURATION INDEX: September 17, 2014 2:15pm PERFORMED BY: September 17, 2014 2:15pm QC REVIEWED BY: September 17, 2014 2:15pm DIAG PROVIDED BY: September 17, 2014 2:15pm ELECT SIGNED BY: September 17, 2014 2:15pm SPECIAL PROCEDURE: September 17, 2014 2:15pm CYTOLOGY HISTORY: September 17, 2014 2:15pm QA COMMENT September 17, 2014 2:15pm . September 17, 2014 2:15pm . September 17, 2014 2:15pm NOTE: September 17, 2014 2:15pm . September 17, 2014 2:15pm Future Visits Future appointment information is unavailable Referrals to Other Providers <thead> Reason for Referral Referral Start Date Provider Provider Contact Information Provider Address NO PHYSICIAN NO PHYSICIAN HARSH PRIEST Work Phone: [address] [facility] [address] [place] [address] LAW CABRERA MD Work Phone: [address] [address] AMRITA BELL Work Phone: [phone] [facility] [address] NO PHYSICIAN NO PHYSICIAN Future Procedures <thead> Procedure Name Ordered Date Scheduled Date Admit to Inpatient August 11, 2024 5:54pm Octo 2023 5:50pm DISCHARGE PATIENT August 13, 2024 10:00am Octo 2023 NPO except Meds August 20, 2024 12:55pm Octob er 2023 12:55pm Insert Peripheral IV Access August 20, 2024 1 2:55pm August 20, 2024 12:55pm Future Medications Future medication information is unavailable Patient Instructions <tbody> Urinary Tract Infection, Paulo lt, Jqiw-wf-Vqii Hemorrhage Care After Vagina l Delivery Urinary Tract Infection, Paulo lt, Imoz-lb-Loij Abnormal Uterine Bleeding, E asy-to-Read Dilation and Curettage or Va cuum Curettage Delivery, Care Afte r Care After Augusto an Delivery Hemorrhage Delivery, Care Afte r Care After Augusto an Delivery Upper Respiratory Infection, Adult, Vriq-nr-Qafp Influenza, Adult, Easy-to-Re ad Care After Augusto an Delivery [facility] [id number] 21:56:00 [facility] [id number] 19:16:33 [facility] [id number] 19:16:33 Patient Care Team <thead> Team Status: Active Member Role Status Dates HARSH PRIEST primary care physician Active LAW CABRERA MD Emergency Provider Active CHAPARRITA STALEY Next of Kin Active CHAPARRITA STALEY Emergency Contact Active [facility] [id number] 19:16:33 Future Tests Future scheduled test information is unavailable Pending Tests <thead> Test Name Ordered Date Scheduled Date September 17, 2014 2:15pm DIAGNOSIS: September 17, 2014 2:15pm RECOMMENDATION: September 17, 2014 2:15pm SPECIMEN ADEQUACY September 17, 2014 2:15pm September 17, 2014 2:15pm SOURCE September 17, 2014 2:15pm CLINICAL HISTORY September 17, 2014 2:15pm -MRFX September 17, 2014 2:15pm AMENDED REPORT: September 17, 2014 2:15pm ADDITIONAL COMMENT: September 17, 2014 2:15pm ADDENDUM: September 17, 2014 2:15pm MATURATION INDEX: September 17, 2014 2:15pm PERFORMED BY: September 17, 2014 2:15pm QC REVIEWED BY: September 17, 2014 2:15pm DIAG PROVIDED BY: September 17, 2014 2:15pm ELECT SIGNED BY: September 17, 2014 2:15pm SPECIAL PROCEDURE: September 17, 2014 2:15pm CYTOLOGY HISTORY: September 17, 2014 2:15pm QA COMMENT September 17, 2014 2:15pm . September 17, 2014 2:15pm . September 17, 2014 2:15pm NOTE: September 17, 2014 2:15pm . September 17, 2014 2:15pm Future Visits Future appointment information is unavailable Referrals to Other Providers <thead> Reason for Referral Referral Start Date Provider Provider Contact Information Provider Address NO PHYSICIAN NO PHYSICIAN AMRITA BELL Work Phone: [phone] [facility] [facility] [address] NO PHYSICIAN NO PHYSICIAN Future Procedures <thead> Procedure Name Ordered Date Scheduled Date Admit to Inpatient August 11, 2024 5:54pm Octo 2023 5:50pm DISCHARGE PATIENT August 13, 2024 10:00am Augo 2023 Future Medications Future medication information is unavailable Patient Instructions <tbody> Urinary Tract Infection, Paulo lt, Osim-wz-Ryhx Hemorrhage Care After Vagina l Delivery Urinary Tract Infection, Paulo lt, Lohk-eg-Vovq Abnormal Uterine Bleeding, E asy-to-Read Dilation and Curettage or Va cuum Curettage Delivery, Care Afte r Care After Augusto an Delivery Hemorrhage Upper Respiratory Infection, Adult, Ulij-xd-Pspm Influenza, Adult, Easy-to-Re ad Care After Augusto an Delivery [facility] [id number] 22:53:35 Patient Care Team <thead> Team Status: Active Member Role Status Dates HARSH PRIEST primary care physician Active LAW CABRERA MD Emergency Provider Active CHAPARRITA STALEY Next of Kin Active CHAPARRITA STALEY Emergency Contact Active [facility] [id number] 22:53:35 Future Tests Future scheduled test information is unavailable Pending Tests <thead> Test Name Ordered Date Scheduled Date September 17, 2014 2:15pm DIAGNOSIS: September 17, 2014 2:15pm RECOMMENDATION: September 17, 2014 2:15pm SPECIMEN ADEQUACY September 17, 2014 2:15pm September 17, 2014 2:15pm SOURCE September 17, 2014 2:15pm CLINICAL HISTORY September 17, 2014 2:15pm -MRFX September 17, 2014 2:15pm AMENDED REPORT: September 17, 2014 2:15pm ADDITIONAL COMMENT: September 17, 2014 2:15pm ADDENDUM: September 17, 2014 2:15pm MATURATION INDEX: September 17, 2014 2:15pm PERFORMED BY: September 17, 2014 2:15pm QC REVIEWED BY: September 17, 2014 2:15pm DIAG PROVIDED BY: September 17, 2014 2:15pm ELECT SIGNED BY: September 17, 2014 2:15pm SPECIAL PROCEDURE: September 17, 2014 2:15pm CYTOLOGY HISTORY: September 17, 2014 2:15pm QA COMMENT September 17, 2014 2:15pm . September 17, 2014 2:15pm . September 17, 2014 2:15pm NOTE: September 17, 2014 2:15pm . September 17, 2014 2:15pm Future Visits Future appointment information is unavailable Referrals to Other Providers <thead> Reason for Referral Referral Start Date Provider Provider Contact Information Provider Address NO PHYSICIAN NO PHYSICIAN AMRITA BELL Work Phone: [phone] [facility] [employer] [facility] [id number] NO PHYSICIAN NO PHYSICIAN Future Procedures <thead> Procedure Name Ordered Date Scheduled Date Admit to Inpatient August 11, 2024 5:54pm Octo 2023 5:50pm DISCHARGE PATIENT August 13, 2024 10:00am Octo 2023 Future Medications Future medication information is unavailable Patient Instructions <tbody> Urinary Tract Infection, Paulo lt, [id number] Hemorrhage Care After Vagina l Delivery Urinary Tract Infection, Paulo lt, Horu-nu-Oxee Abnormal Uterine Bleeding, E asy-to-Read Dilation and Curettage or Va cuum Curettage Delivery, Care Afte r Care After Augusto an Delivery Hemorrhage Upper Respiratory Infection, Adult, Csgu-[id number] Influenza, Adult, Easy-to-Re ad Care After Augusto an Delivery [facility] [id number] 22:53:35 [facility]
[2025-06-27 12:39] LABS: Absolute Lymphocytes (CBC) 1.8 K/uL (0.7-4.9); Hematocrit 36.6 % (36.0-45.0); Hemoglobin 12.2 g/dL (12.0-15.0); MCH 30.7 pg (27.0-35.0); MCHC 33.4 g/dL (32.0-36.0); MCV 91.7 fL (80-100); MPV 8.3 fL (7.6-11.3); Nucleated RBC Absolute Count 0.0 (0-0); Nucleated Red Blood Cells % 0.0 % (0-0); RBC Red Blood Cell Count 3.99 M/uL (3.86-4.86); White Blood Count 9.30 thou/uL (4.3-10.9)
[2025-06-27 13:05] LABS: Anion Gap 10.7 mEq/L (5.0-15.0); BUN Blood Urea Nitrogen 15.0 mg/dL (7-18); Glucose Level 108.0 mg/dL (74-106); HCG, Quantitative 225.0 mIU/mL (1-3); Potassium 3.7 mEq/L (3.5-5.1)
[2025-06-27] MEDS ORDERED: NA CHLORIDE 0.9% 1,000 ML ONE (14:49)
[2025-06-27 14:59] LABS: Absolute Lymphocytes (CBC) 1.0 K/uL (0.7-4.9); Hematocrit 33.5 % (36.0-45.0); Hemoglobin 11.4 g/dL (12.0-15.0); MCH 31.1 pg (27.0-35.0); MCHC 33.9 g/dL (32.0-36.0); MCV 91.7 fL (80-100); MPV 8.0 fL (7.6-11.3); Nucleated RBC Absolute Count 0.0 (0-0); Nucleated Red Blood Cells % 0.1 % (0-0); RBC Red Blood Cell Count 3.65 M/uL (3.86-4.86); White Blood Count 14.10 thou/uL (4.3-10.9)
--- NOTE | 2025-06-27 15:23 | RAD REPORT ---
EXAMINATION: US Transvaginal Study Probe CLINICAL INDICATION: Female 30 years old. last week Abd pain;Vaginal bleeding TECHNIQUE: Real-time ultrasonography of the pelvis was performed transvaginally. Color and spectral D oppler evaluation of the ovaries was performed. COMPARISON: No prior exam. FINDINGS: UTERUS AND CERVIX: The uterus measures 9.3 cm in length. The uterus shows somewhat heterogeneous myom etrial, with an anterior wall 1.6 cm fibroid. The endometrium is heterogeneous, and thickened measuring up to 1.3 cm, with some debris as well as areas of vascularity and punctate echogenicities which could relate to mineralization or gas. Debris extends to the internal os. RIGHT OVARY: Normal The right ovary measures 1.9 x 1.9 x 2.3 cm. Normal color and spectral Doppler evaluation of the right ovary.. LEFT OVARY: Normal The left ovary measures 2.5 x 2.2 x 1.5 cm. Normal color and spectral Doppler evaluation of the left ovary.. FREE FLUID: No free fluid. IMPRESSION: Heterogeneous thickened endometrium with debris as well as areas of vascularity. Underlying suspiciou s endometrial lesions cannot be entirely excluded. Follow-up ultrasound in 4-6 weeks recommended to exclude an underlying suspicious lesion. If clinical symptoms are not resolving, additional evaluatio n by pelvic MRI could be considered. Incidentally noted small anterior wall fibroid measuring 1.6 cm.
--- NOTE | 2025-06-27 15:54 | ER ---
Nurse's Notes [facility] Name: Shena Yung Age: 30 yrs Sex: Female : 1995 Arrival Date: 06/27/2025 Time: 11:58 Bed 3 Private MD: Diagnosis: Abnormal uterine and vaginal bleeding, unspecified;Positive beta, probable retained products of conception Presentation: 06/27 12:01 Chief complaint: EMS states: VSS. 20 G L AC with NS \T\ TKO. G5, P4, AB1. Chief ll1 complaint: Patient states: Vaginal bleeding for 2 weeks. 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 Coronavirus screen: Client denies travel out of the [place] in the last 14 days. At this time, the client does not indicate any symptoms associated with coronavirus-19. Ebola Screen: Patient denies travel to an Ebola-affected area in the 21 days before illness onset. Initial Sepsis Screen: Does the patient meet any 2 criteria? No. Patient's initial sepsis screen is negative. Does the patient have a suspected source of infection? No. Patient's initial sepsis screen is negative. Risk Assessment: Do you want to hurt yourself or someone else? Patient reports no desire to harm self or others. Onset of symptoms was June 13, 2025. 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 - Infectious Disease History:: Denies. - Social history:: Smoking status: Patient denies any tobacco usage or history of. Screenin:18 [facility] ED Fall Risk Assessment (Adult) History of falling in the last 3 months, ph including since admission No falls in past 3 months (0 pts) Confusion or Disorientation No (0 pts) Intoxicated or Sedated No (0 pts) Impaired Gait No (0 pts) Mobility Assist Device Used No (0 pt) Altered Elimination No (0 pt) Score/Fall Risk Level 0 - 2 = Low Risk Oriented to surroundings, Maintained a safe environment, Hourly rounding (assess needs \T\ fall precautionary measures) done, Used ambulatory aids as needed (educated on \T\ assisted with). Abuse screen: Denies threats or abuse. Denies injuries from another. Nutritional screening: No deficits noted. Tuberculosis screening: No symptoms or risk factors identified. Assessment: 12:19 General: Appears ill, Behavior is calm, cooperative, appropriate for age. Pain: dd2 Complains of pain in suprapubic area. Neuro: Level of Consciousness is awake, alert, obeys commands, Oriented to person, place, time, situation, Appropriate for age. 12:19 Cardiovascular: No deficits noted. Respiratory: No deficits noted. Airway is patent dd2 Respiratory effort is even, unlabored, Respiratory pattern is regular, symmetrical. GI: Abd is soft and non tender X 4 quads. Reports lower abdominal pain, cramping. : Reports pain in suprapubic area vaginal bleeding that is heavy flow since X 2 WEEKS. EENT: No deficits noted. No signs and/or symptoms were reported regarding the EENT system. Derm: No deficits noted. No signs and/or symptoms reported regarding the dermatologic system. Musculoskeletal: Circulation, motion, and sensation intact. Range of motion: intact in all extremities. 13:01 General: Appears slender, well groomed, Behavior is drowsy, quiet. Pain: Complains of ph pain in suprapubic area. Neuro: Level of Consciousness is obeys commands, lethargic, Oriented to person, place, time, situation. Cardiovascular: Capillary refill < 3 seconds in bilateral fingers Patient's skin is warm and dry. Rhythm is sinus rhythm. Respiratory: Airway is patent Respiratory effort is even, unlabored. : Reports pain in suprapubic area vaginal bleeding that is with clots, heavy flow. Derm: Skin is pink, warm \T\ dry. 17:31 Reassessment: Report called to Leah at [facility], awaiting EMS for transport. Vital Signs: 12:01 BP 108 / 62; Pulse 96; Resp 17; Temp 97.2; Pulse Ox 100% on R/A; Weight 58.97 kg; ll1 Height 4 ft. 11 in. ; Pain 10/10; 12:35 BP 77 / 42; Pulse 35; Resp 15; Pulse Ox 98% ; dd2 12:39 BP 86 / 45; Pulse 49; Resp 16; Pulse Ox 100% on R/A; dd2 13:02 BP 101 / 71; Pulse 70; Resp 18; Pulse Ox 98% ; ph 13:30 BP 108 / 79; Pulse 72; Resp 17; Pulse Ox 100% on R/A; ab3 14:00 BP 102 / 50; Pulse 86; Resp 19; Pulse Ox 100% on R/A; ab3 14:47 BP 89 / 60; Pulse 79; Resp 18; Pulse Ox 100% on R/A; Pain 0/10; ab3 15:00 BP 109 / 59; Pulse 72; Resp 16; Pulse Ox 100% on R/A; ab3 15:15 BP 117 / 92; Pulse 77; Resp 16; Pulse Ox 100% on R/A; ab3 16:00 BP 105 / 58; Pulse 81; Resp 18; Pulse Ox 99% on R/A; ph 17:11 BP 102 / 71; Pulse 83; Resp 18; Pulse Ox 99% on R/A; ph 17:32 BP 116 / 72; Pulse 94; Resp 18; Pulse Ox 100% on R/A; ph 18:09 BP 115 / 76; Pulse 89; Resp 16; Pulse Ox 99% on R/A; ph 12:01 Body Mass Index 26.26 (58.97 kg, 149.86 cm) ll1 12:01 Pain Scale: Adult ll1 14:47 Pain Scale: Adult ab3 14:47 HOB lowered and provider notified; awaiting further orders. Pt denies dizziness or ab3 other s/s at present ED Course: 12:00 Patient arrived in ED. ll1 12:00 Alma Lagos PA-C is PHCP. sb4 12:00 Vito Allen MD is Attending Physician. sb4 12:01 Arm band placed on. ll1 12:06 Triage completed. ll1 12:19 Patient placed in an exam room, on a stretcher. ll1 12:19 Patient has correct armband on for positive identification. Bed in low position. Call dd2 light in reach. Side rails up X2. Client placed on continuous cardiac and pulse oximetry monitoring. NIBP monitoring applied. 12:19 Maintain EMS IV. Dressing intact. Good blood return noted. Site clean \T\ dry. Gauge \T\ dd 2 site: 20 G LAC. Flushed with 10 mL NS. 12:35 Basic Metabolic Panel Sent. dd2 12:35 CBC with Diff Sent. dd2 12:35 Test, Urine Sent. dd2 12:35 Quantitative Hcg Sent. dd2 12:49 Tate Cook, RN is Primary Nurse. bp 14:05 No apparent distress. Patient taken to ultrasound. via wheelchair. ab3 14:40 Transvaginal Study (probe) In Process Unspecified. EDMS 14:41 Patient moved back from ultrasound. ab3 16:26 Assist provider with pelvic exam: Set up pelvic tray. Performed by Alma Lagos PA-C ab3 Patient tolerated well. 16:30 Urine collected: voided per pt (currently with heavy vaginal bleeding); sent to lab. ab3 16:48 initiated transfer to [facility] as requested by pt, pt was accepted in bd transfer to [facility] by dr Jace Perry admin approval given by Ary (cleaner housekeeping). 18:09 Patient transferred, IV remains in place. ph Administered Medications: 12:57 Drug: NS 0.9% IV 1000 ml IV at 1000 ml once; to be given as a bolus over 60 minutes ph Route: IV; Rate: 1000 ml; Site: left antecubital; 13:57 Follow up: IV Status: Completed infusion; IV converted to saline lock; IV Intake: [id number] 14:51 Drug: NS 0.9% IV 1000 ml IV at 1 bolus Per protocol; to be given as a bolus over 60 ab3 minutes Route: IV; Rate: 1 bolus; Infused Over: 1 hrs; Site: left antecubital; Delivery: Primary tubing; 16:00 Follow up: Response: No adverse reaction; IV Intake: 1000ml ph 17:37 Follow up: Response: No adverse reaction ph Medication: 12:19 VIS not applicable for this client. dd2 Intake: 13:57 IV: 1000ml; Total: 1000ml. ab3 16:00 IV: 1000ml; Total: 2000ml. ph Outcome: 15:54 ER care complete, transfer ordered by . sb4 18:50 Patient left the ED. bp Signatures: Dispatcher [employer] EDMS Vivian Peerz Leonarda Freed RN RN ph Tate Cook, RN RN bp Anna Ivey RN RN ll1 Alma Lagos, PAJean PAJean sb4 Claudette Rust RN RN ab3 REMEDIOS BOYCE RN RN dd2 Corrections: (The following items were deleted from the chart) 12:55 12:35 ABO/RH TYPING+BB.LAB.BRZ drawn and sent. dd2 EDMS
--- NOTE | 2025-06-27 15:54 | EDPHYS ---
Physician Documentation [facility] Name: Shena Yung Age: 30 yrs Sex: Female : 1995 Arrival Date: 06/27/2025 Time: 11:58 Bed 3 Private MD: ASHLEY Physician Vito Allen HPI: 06/27 12:05 This 30 yrs old Female presents to ER via Unassigned with complaints of Vaginal sb4 Bleeding. 13:40 Patient reports vaginal bleeding for about 2 weeks that she thought was her menstrual sb4 cycle, states that it has slowed down to spotting the past few days. However, this morning she started "gushing blood "and is having a lot of cramping in her lower abdomen. She states that she was on control but went off of it last month because it was not controlling her cycles. Does not know if she is or not. Denies any nausea, vomiting, or diarrhea. 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 - Infectious Disease History:: Denies. - Social history:: Smoking status: Patient denies any tobacco usage or history of. ROS: 13:40 Positive for pelvic pain, vaginal bleeding, menstrual abnormality, sb4 13:40 Constitutional: Negative for fever, chills, and weight loss, 13:40 All other systems are negative, Exam: 13:40 Head/Face: Normocephalic, atraumatic. Eyes: Extra-ocular motions intact. Periorbital sb4 areas with no swelling, redness, or edema. ENT: Mucous membranes moist. Cardiovascular: Regular rate and rhythm with a normal S1 and S2. Respiratory: No increased work of breathing, no retractions or nasal flaring. Abdomen/GI: Soft, non-tender, no distension. Skin: Warm, dry with normal turgor. Normal color with no rashes, no lesions, and no evidence of cellulitis. 13:40 Constitutional: The patient appears in no acute distress, alert, awake, 16:36 : Pelvic Exam: External exam: is normal, Speculum exam: moderate bleeding, no sb4 cervicitis, os that is closed, no tissue in cervix is seen, no tissue in vagina is seen, discharge, is not appreciated, the nurse was present for the exam, Vital Signs: 12:01 BP 108 / 62; Pulse 96; Resp 17; Temp 97.2; Pulse Ox 100% on R/A; Weight 58.97 kg; ll1 Height 4 ft. 11 in. ; Pain 10/10; 12:35 BP 77 / 42; Pulse 35; Resp 15; Pulse Ox 98% ; dd2 12:39 BP 86 / 45; Pulse 49; Resp 16; Pulse Ox 100% on R/A; dd2 13:02 BP 101 / 71; Pulse 70; Resp 18; Pulse Ox 98% ; ph 13:30 BP 108 / 79; Pulse 72; Resp 17; Pulse Ox 100% on R/A; ab3 14:00 BP 102 / 50; Pulse 86; Resp 19; Pulse Ox 100% on R/A; ab3 14:47 BP 89 / 60; Pulse 79; Resp 18; Pulse Ox 100% on R/A; Pain 0/10; ab3 15:00 BP 109 / 59; Pulse 72; Resp 16; Pulse Ox 100% on R/A; ab3 15:15 BP 117 / 92; Pulse 77; Resp 16; Pulse Ox 100% on R/A; ab3 16:00 BP 105 / 58; Pulse 81; Resp 18; Pulse Ox 99% on R/A; ph 17:11 BP 102 / 71; Pulse 83; Resp 18; Pulse Ox 99% on R/A; ph 17:32 BP 116 / 72; Pulse 94; Resp 18; Pulse Ox 100% on R/A; ph 18:09 BP 115 / 76; Pulse 89; Resp 16; Pulse Ox 99% on R/A; ph 12:01 Body Mass Index 26.26 (58.97 kg, 149.86 cm) ll1 12:01 Pain Scale: Adult ll1 14:47 Pain Scale: Adult ab3 14:47 HOB lowered and provider notified; awaiting further orders. Pt denies dizziness or ab3 other s/s at present MDM: 12:01 Medical Screening Exam initiated sb4 13:40 Differential diagnosis: dysfunctional uterine bleeding, dysmenorrhea, menometrorrhagia, sb4 menorrhea, threatened Ab, inevitable Ab, ovarian cyst, ruptured ectopic , uterine fibroids, urinary tract infection. 16:25 Data reviewed: vital signs, nurses notes, lab test result(s), radiologic studies, I sb4 have discussed the patient's presentation/case with the attending Emergency Department Physician;. Counseling: I had a detailed discussion with the patient and/or guardian regarding the historical points, exam findings, and any diagnostic results supporting the discharge/admit diagnosis, lab results, radiology results, the need to transfer to another facility, [facility] does not immediately have the required specialist. 16:41 Consideration of Admission/Observation Escalation of care including sb4 admission/observation considered. Management of patient was discussed with the following: ER physician at [place], accepts patient for transfer. ED course: Patient has positive hCG, moderate to severe vaginal bleeding with multiple low blood pressure readings, requires transfer for PE ELECTRICAL ENGINEER evaluation. Patient requests [place] as that is where her PE ELECTRICAL ENGINEER is at. 06/27 12:06 Order name: Basic Metabolic Panel; Complete Time: 13:06 sb4 06/27 12:06 Order name: CBC with Diff; Complete Time: 12:48 sb4 06/27 12:06 Order name: Quantitative Hcg; Complete Time: 13:06 sb4 06/27 12:19 Order name: Type And Screen; Complete Time: 13:30 sb4 06/27 14:48 Order name: CBC with Diff; Complete Time: 16:31 sb4 06/27 15:03 Order name: CBC Smear Scan; Complete Time: 16:31 EDMS 06/27 15:59 Order name: ABO/RH no charge; Complete Time: 16:06 EDMS 06/27 16:46 Order name: Urine Microscopic Only; Complete Time: 16:52 EDMS 06/27 12:26 Order name: Transvaginal Study (probe); Complete Time: 15:52 sb4 06/27 12:06 Order name: IV Saline Lock; Complete Time: 12:34 sb4 06/27 12:06 Order name: Labs collected and sent; Complete Time: 12:34 sb4 06/27 12:21 Order name: Pelvic Exam Setup; Complete Time: 17:37 sb4 Administered Medications: 12:57 Drug: NS 0.9% IV 1000 ml IV at 1000 ml once; to be given as a bolus over 60 minutes ph Route: IV; Rate: 1000 ml; Site: left antecubital; 13:57 Follow up: IV Status: Completed infusion; IV converted to saline lock; IV Intake: [id number] 14:51 Drug: NS 0.9% IV 1000 ml IV at 1 bolus Per protocol; to be given as a bolus over 60 ab3 minutes Route: IV; Rate: 1 bolus; Infused Over: 1 hrs; Site: left antecubital; Delivery: Primary tubing; 16:00 Follow up: Response: No adverse reaction; IV Intake: 1000ml ph 17:37 Follow up: Response: No adverse reaction ph Disposition: 06/28 13:53 Co-signature as Attending Physician, Vito Allen MD I agree with the assessment and gus plan of care. Disposition Summary: 06/27/25 15:54 Transfer Ordered Notes: Transfer Location: Other Acute Care Facility sb4 Reason: Specialty sb4 Condition: Fair sb4 Problem: new sb4 Symptoms: are unchanged sb4 Accepting Physician: obrosalesn(06/27/25 18:50) bp Diagnosis - Abnormal uterine and vaginal bleeding, unspecified sb4 - Positive beta, probable retained products of conception sb4 Forms: - Medication Reconciliation Form sb4 - SBAR form sb4 Signatures: Dispatcher [employer] Vito Deleon MD MD cha Hall, Patricia, RN RN Tate Clayton RN RN bp Lewis, Lynsay, RN RN ll1 Alma Lagos PA-C PA-C sb4 Claudette Rust RN RN ab3 REMEDIOS BOYCE RN RN dd2 Corrections: (The following items were deleted from the chart) 06/27 12:06 12:06 BASIC METABOLIC PANEL+C.LAB.BRZ ordered. EDMS EDMS 12:06 12:06 CBC+H.LAB.BRZ ordered. EDMS EDMS 12:06 12:06 Test, Urine+UC.LAB.BRZ ordered. EDMS EDMS 12:06 12:06 QUANTITATIVE HCG+C.LAB.BRZ ordered. EDMS EDMS 12:27 12:27 Transvaginal Study (Probe)+US.RAD.BRZ ordered. EDMS EDMS 12:55 12:06 ABO/RH TYPING+BB.LAB.BRZ ordered. EDMS EDMS 15:56 15:54 obgyn sb4 sb4 16:41 16:36 : Pelvic Exam: External exam: is normal, Speculum exam: moderate bleeding, no sb4 cervicitis, os that is closed, no tissue in cervix is seen, no tissue in vagina is seen, sb4 16:46 12:27 UA Rfx Yash Cult if indicated+U.LAB.BRZ ordered. EDMS EDMS 18:50 15:56 obgyn sb4 bp
[2025-06-27 16:29] LABS: White Blood Cell Scan OK (OK)
[2025-06-27 16:30] LABS: Blood Morphology Comment NOT SEEN (NOT SEEN)
[2025-06-27 16:52] LABS: Sqamous Epithelial <5 /HPF (None Seen); Urine Crystals Unidentified Few /HPF (None Seen); Urine Micro Reflex YN NO BILL MICROSCOPIC; Urine WBC Clump Occasional /HPF (None Seen); Urine Yeast (Budding) Trace /HPF (None Seen)
[2025-06-28 02:11] VITALS: TEMP 97.2
[2025-06-28 02:25] VITALS: BP 115/76; O2SAT 99
== END 2025-06-27 18:50 ==
LOC: ER 11:58
DX: N93.9 Abnormal uterine and vaginal bleeding, unspecified (principal); Z32.01 Encounter for pregnancy test, result positive
CPT/HCPCS: 36415; 76830; 80048; 81015; 84702; 85025; 86850; 86900; 86901; 96360; 99285; J7030